=== PATIENT | male | born 1945 | race Caucasian/White ===

== ENCOUNTER 2017-05-07 19:14 | Emergency (ER) | payer MEDICARE, SELFPAY | END 2017-05-07 21:24 | disposition home or self-care (01) | PROVIDERS: Emergency Provider Nurse Practitioner Family; Family Provider Emergency Medicine; Visit Provider Nurse Practitioner Family | DX: J11.1 Influenza due to unidentified influenza virus with other respiratory manifestations (principal); E11.9 Type 2 diabetes mellitus without complications; I10 Essential (primary) hypertension; E78.5 Hyperlipidemia, unspecified; Z79.899 Other long term (current) drug therapy | CPT/HCPCS: G0463; 71020; 80048; 85025; 87804; 94640; 96372; 99201 ==

== ENCOUNTER → 2017-08-24 15:50 | Outpatient (REF) | payer MEDICARE, SELFPAY ==
[2017-08-24 18:17] LABS: Basophils % 0.6 % (0.1-2.0); Eosinophils # 0.5 K/mm3 (0.0-0.4); Eosinophils % 6.3 % (0.1-12.0); Hematocrit 41.4 % (42.0-52.0); Hemoglobin 13.1 g/dL (14.1-18.0); Lymphocytes # 1.6 K/mm3 (0.7-4.5); Lymphocytes % 22.2 K/mm3 (10-50); Mean Corpuscular HGB Conc 31.6 g/dL (31.8-35.4); Mean Corpuscular Hemoglobin 30.3 pg (27.0-31.2); Mean Corpuscular Volume 95.9 fl (80-94); Mean Platelet Volume 7.7 fl (7.4-10.4); Monocytes # 0.6 K/mm3 (0.1-1.0); Monocytes % 8.3 % (1.7-9.3); Neutrophils # 4.5 K/mm3 (1.8-7.8); Neutrophils % 62.5 % (37.0-80.0); Platelet Count 246 K/mm3 (142-424); Red Blood Count 4.32 M/mm3 (4.60-6.20); Red Cell Distribution Width 13.2 % (11.5-17.5); White Blood Count 7.1 K/mm3 (4.8-10.8)
[2017-08-24 18:59] LABS: Hemoglobin A1C 7.8 % (0.0-7.0)
[2017-08-24 19:06] LABS: Erythrocyte Sedimentation Rate 21 mm/hr (0-20)
[2017-08-24 19:37] LABS: Alanine Aminotransferase 28 U/L (12-78); Albumin Level 3.3 gm/dL (3.4-5.0); Alkaline Phosphatase 142 U/L (46-116); Anion Gap 14.2 mEq/L (5-15); Aspartate Amino Transferase 23 U/L (15-37); Bilirubin,Total 0.3 mg/dL (0.2-1.0); Blood Urea Nitrogen 18 mg/dL (7-18); Carbon Dioxide 27 mmol/L (21.0-32.0); Chloride 108 mmol/L (98-107); Creatinine,Serum 1.29 mg/dL (0.70-1.30); Estimated Glomerular Filt Rate 55 ml/min (>60); GFR (African American) 66 ML/MIN (>60); Globulin 3.2 gm/dl (1.3-3.2); Glucose 228 mg/dL (74-106); Potassium 5.2 mmoL/L (3.5-5.1); Sodium 144 mmol/L (136-145); Thyroid Stimulating Hormone 2.25 uIU/ml (0.358-3.740); Total Protein,Serum 6.5 gm/dL (6.4-8.2)
[2017-08-26 15:57] LABS: PSA, Free 0.03 ng/mL; Prostate Specific Ag <0.1 ng/mL (0.0-4.0); Vitamin B12 463 pg/mL (232-1245); Vitamin D 25 Hydroxy 36.6 ng/mL (30.0-100.0)
== END ==
LOC: LAB 15:50
PROVIDERS: Visit Provider Emergency Medicine
DX: Z79.899 Other long term (current) drug therapy (principal); G62.9 Polyneuropathy, unspecified; I10 Essential (primary) hypertension
CPT/HCPCS: 80053; 82607; 82652; 83036; 84153; 84154; 84439; 84443; 85025; 85651

== ENCOUNTER → 2017-09-15 09:27 | Outpatient (CLI) | payer MEDICARE, SELFPAY ==
[2017-09-15 11:24] VITALS: PULSE 62; PULSE 69
== END ==
PROVIDERS: Family Provider Emergency Medicine; PCP Emergency Medicine; Visit Provider Internal Medicine
DX: R06.02 Shortness of breath (principal); I25.10 Atherosclerotic heart disease of native coronary artery without angina pectoris
CPT/HCPCS: 94060; 94640; 94726; 94729

== ENCOUNTER → 2018-04-14 09:55 | Outpatient (CLI) | payer MEDICARE, SELFPAY ==
--- NOTE | 2018-04-14 09:58 | CA_ITS ---
PROCEDURE: 2-D M-mode and color Doppler study INDICATIONS FOR THE TEST: Chest pain + COPD Heart Murmur Tobacco Smoking Palpitations Fatigue Syncope Edema+ Hypertension+Diabetes Mellitus+ Rheumatic Fever SOB MOISE Obesity Hyperlipidemia Family History HD Additional History MEHUL, CAD, STENT PATIENT INFORMATION HEIGHT: 69 WEIGHT:200 GENDER: Male B/P:126/76 2-D/M-MODE INTERPRETATION: 2-D MEASUREMENTS OBSERVED VALUES IN CMS Right Ventricular Dimension (RVDd) 3.0 Interventricular Septum (Thickness)(IVsd) 1.5 Left Ventricular Internal Dimensions(LVIDd) 3.8 Left Ventricular Posterior Wall (Thickness)(LVPWd) 1.2 Aortic Root 2.8 Aortic Cusp Separation 1.6 Left Atrial Dimensions (LAD) 4.1 2D 1. Left atrium is mildly enlarged, left ventricle is normal size, mild concentric left ventricular hypertrophy, visually estimated ejection fraction of 55% with no regional wall motion abnormality. 2. The right atrium and right ventricle are mildly enlarged with normal contractility. 3. The aortic valve is minimally thickened and fibrosed leaflet, display mobility. 4. The mitral and tricuspid valvular grossly normal. 5. The pulmonic valve is poorly visualized. 6. No significant pericardial effusion noted. DOPPLER INTERROGATION: Doppler interrogation of the aortic, mitral and tricuspid valvular presence of mild aortic, mild mitral and tricuspid regurgitation, tricuspid regurgitation jet velocity is inadequate for calculation of the right ventricular systolic pressure. Grade 1 diastolic dysfunction seen with tissue Doppler evidence of raised left atrial pressure. CONCLUSION: 1. Left atrium is mildly enlarged, left ventricle is normal size, mild concentric left ventricular hypertrophy, visually estimated ejection fraction 55% with no regional wall motion abnormality, grade 1 diastolic dysfunction seen with tissue Doppler evidence of raised left atrial pressure. 2. Mild aortic, mild mitral and tricuspid regurgitation 3. No significant pericardial effusion noted.
== END ==
PROVIDERS: PCP Emergency Medicine; Visit Provider Internal Medicine
DX: G47.33 Obstructive sleep apnea (adult) (pediatric) (principal); R06.02 Shortness of breath
CPT/HCPCS: 93306

== ENCOUNTER → 2018-05-13 08:38 | Outpatient (CLI) | payer MEDICARE, SELFPAY ==
[2018-05-13 09:20] LABS: Basophils # 0.1 K/mm3 (0-0.2); Basophils % 0.8 % (0.1-2.0); Eosinophils # 0.2 K/mm3 (0.0-0.4); Eosinophils % 3.6 % (0.1-12.0); Hematocrit 42.2 % (42.0-52.0); Hemoglobin 13.5 g/dL (14.1-18.0); Lymphocytes # 1.4 K/mm3 (0.7-4.5); Lymphocytes % 22.7 % (10-50); Mean Corpuscular Hemoglobin 29.8 pg (27.0-31.2); Mean Corpuscular Volume 93.2 fl (80-94); Mean Platelet Volume 7.4 fl (7.4-10.4); Monocytes # 0.6 K/mm3 (0.1-1.0); Monocytes % 9.1 % (1.7-9.3); Neutrophils # 3.8 K/mm3 (1.8-7.8); Neutrophils % 63.8 % (37.0-80.0); Platelet Count 204 K/mm3 (142-424); Red Blood Count 4.53 M/mm3 (4.60-6.20); Red Cell Distribution Width 13.7 % (11.5-17.5)
[2018-05-13 11:20] LABS: Alanine Aminotransferase 27 U/L (12-78); Albumin Level 3.4 gm/dL (3.4-5.0); Albumin/Globulin Ratio 1.2 (1.1-1.8); Alkaline Phosphatase 153 U/L (46-116); Anion Gap 14.6 mEq/L (5-15); Aspartate Amino Transferase 19 U/L (15-37); Bilirubin,Total 0.5 mg/dL (0.2-1.0); Blood Urea Nitrogen 16 mg/dL (7-18); Calcium 8.3 mg/dL (8.5-10.1); Carbon Dioxide 26 mmol/L (21.0-32.0); Chloride 105 mmol/L (98-107); Chol/HDL Ratio 2.3 (1-3.5); Cholesterol 143 mg/dL (140-200); Creatinine,Serum 1.22 mg/dL (0.70-1.30); Estimated Glomerular Filt Rate 58 ml/min (>60); Free T4 (Free Thyroxine) 1.05 ng/dl (0.76-1.46); GFR (African American) 70 ML/MIN (>60); Globulin 2.8 gm/dl (1.3-3.2); Glucose 147 mg/dL (74-106); HDL Cholesterol 62 mg/dL (27-67); LDL Cholesterol 67 mg/dL (0-130); Potassium 4.6 mmoL/L (3.5-5.1); Sodium 141 mmol/L (136-145); Thyroid Stimulating Hormone 3.63 uIU/ml (0.358-3.740); Total Protein,Serum 6.2 gm/dL (6.4-8.2); Triglycerides 72 mg/dL (30-200); VLDL Cholesterol 14 mg/dL (0-40)
[2018-05-14 10:58] LABS: PSA, Free 0.04 ng/mL; Prostate Specific Ag <0.1 ng/mL (0.0-4.0); Vitamin D 25 Hydroxy 30.5 ng/mL (30.0-100.0)
== END ==
PROVIDERS: Visit Provider Emergency Medicine
DX: E11.9 Type 2 diabetes mellitus without complications (principal); R33.9 Retention of urine, unspecified
CPT/HCPCS: 36415; 80053; 80061; 82652; 83036; 84153; 84154; 84439; 84443; 85025

== ENCOUNTER → 2018-10-07 12:34 | Outpatient (CLI) | payer MEDICARE, SELFPAY ==
--- NOTE | 2018-10-07 12:36 | CI_ITS ---
Cerebrovascular Exam IMPRESSIONS 1. The bilateral vertebral arteries are patent with normal antegrade flow. 2. Study suggests less than 20% stenosis involving the right internal carotid artery and the left internal carotid artery. History: Risk factors: Hypertension. Diabetes mellitus. Labs, prior tests, procedures, and surgery: Right endarterectomy. Labs, prior tests, procedures, and surgery: Right endarterectomy. Carotid duplex study. Complete study and Doppler flow study including spectral analysis, color and giles scale imaging. Height: Height: 175.3cm. Height: 69in. Weight: Weight: 90.7kg. Weight: 199.6lb. Body mass index: BMI: 29.5kg/m^2. Body surface area: BSA: 2.12m^2. Location: Vascular laboratory. Patient status: Outpatient. Tables: Arterial flow: + +--------+--------+ [facility] + +--------+--------+ Right CCA - proximal 120cm/s 18.9cm/s + +--------+--------+ Right CCA - distal 93.5cm/s 23.6cm/s + +--------+--------+ Right ECA 129cm/s -------- + +--------+--------+ Right ICA - proximal 88.8cm/s 31.4cm/s + +--------+--------+ Right ICA - mid 84.8cm/s 27.7cm/s + +--------+--------+ Right ICA - distal 74.1cm/s 23.8cm/s + +--------+--------+ Right vertebral 20.6cm/s -------- + +--------+--------+ Left CCA - proximal 119cm/s 24.4cm/s + +--------+--------+ Left CCA - distal 112cm/s 25.1cm/s + +--------+--------+ Left ECA 104cm/s -------- + +--------+--------+ Left ICA - proximal 95cm/s 24.4cm/s + +--------+--------+ Left ICA - mid 98.5cm/s 36.3cm/s + +--------+--------+ Left ICA - distal 103cm/s 36.3cm/s + +--------+--------+ Left vertebral 34.9cm/s -------- + +--------+--------+ Velocity ratios: + + + + + + Right, V sys Right, V ed Left, V sys Left, V ed + + + + + + Max ICA/dist CCA 0.95 1.33 0.92 1.45 + + + + + + (Report amended ) Electronically signed by: Vivek Bishop [id number]
== END ==
PROVIDERS: PCP Emergency Medicine; Visit Provider Urology
DX: E11.9 Type 2 diabetes mellitus without complications (principal); G47.33 Obstructive sleep apnea (adult) (pediatric); I10 Essential (primary) hypertension; I25.10 Atherosclerotic heart disease of native coronary artery without angina pectoris; I65.23 Occlusion and stenosis of bilateral carotid arteries; Z79.84 Long term (current) use of oral hypoglycemic drugs
CPT/HCPCS: 93880

== ENCOUNTER → 2019-03-21 16:37 | Outpatient (CLI) | payer MEDICARE, SELFPAY ==
[2019-03-21 17:30] LABS: Basophils # 0.1 K/mm3 (0-0.2); Basophils % 0.7 % (0.1-2.0); Eosinophils # 0.1 K/mm3 (0.0-0.4); Eosinophils % 1.5 % (0.1-12.0); Hematocrit 42.3 % (42.0-52.0); Hemoglobin 13.7 g/dL (14.1-18.0); Lymphocytes # 1.6 K/mm3 (0.7-4.5); Lymphocytes % 18.5 % (10-50); Mean Corpuscular HGB Conc 32.4 g/dL (31.8-35.4); Mean Corpuscular Hemoglobin 30.4 pg (27.0-31.2); Mean Corpuscular Volume 93.7 fl (80-94); Mean Platelet Volume 8.4 fl (7.4-10.4); Monocytes # 0.8 K/mm3 (0.1-1.0); Monocytes % 9.6 % (1.7-9.3); Neutrophils # 6.1 K/mm3 (1.8-7.8); Neutrophils % 69.7 % (37.0-80.0); Platelet Count 216 K/mm3 (142-424); Red Blood Count 4.51 M/mm3 (4.60-6.20); Red Cell Distribution Width 13.3 % (11.5-17.5); White Blood Count 8.7 K/mm3 (4.8-10.8)
[2019-03-21 18:26] LABS: Alanine Aminotransferase 21 U/L (12-78); Albumin Level 3.6 gm/dL (3.4-5.0); Albumin/Globulin Ratio 1.2 (1.1-1.8); Alkaline Phosphatase 112 U/L (46-116); Anion Gap 14.8 mEq/L (5-15); Aspartate Amino Transferase 14 U/L (15-37); Bilirubin,Total 0.3 mg/dL (0.2-1.0); Blood Urea Nitrogen 19 mg/dL (7-18); Calcium 9.3 mg/dL (8.5-10.1); Carbon Dioxide 25 mmol/L (21.0-32.0); Chloride 106 mmol/L (98-107); Chol/HDL Ratio 3.1 (1-3.5); Cholesterol 144 mg/dL (140-200); Estimated Glomerular Filt Rate 54 ml/min (>60); Free T4 (Free Thyroxine) 1.04 ng/dl (0.76-1.46); GFR (African American) 65 ML/MIN (>60); Globulin 2.9 gm/dl (1.3-3.2); Glucose 144 mg/dL (74-106); HDL Cholesterol 47 mg/dL (27-67); LDL Cholesterol 70 mg/dL (0-130); Potassium 4.8 mmoL/L (3.5-5.1); Sodium 141 mmol/L (136-145); Thyroid Stimulating Hormone 3.34 uIU/ml (0.358-3.740); Total Protein,Serum 6.5 gm/dL (6.4-8.2); Triglycerides 137 mg/dL (30-200); VLDL Cholesterol 27 mg/dL (0-40)
[2019-03-21 19:11] LABS: Hemoglobin A1C 8.3 % (0.0-7.0)
[2019-03-23 12:03] LABS: Vitamin D 25 Hydroxy 26.1 ng/mL (30.0-100.0)
== END ==
PROVIDERS: Visit Provider Emergency Medicine
DX: E11.9 Type 2 diabetes mellitus without complications (principal); Z79.84 Long term (current) use of oral hypoglycemic drugs
CPT/HCPCS: 80053; 80061; 82652; 83036; 84439; 84443; 85025

== ENCOUNTER → 2019-10-10 09:07 | Outpatient (CLI) | payer MEDICARE, SELFPAY ==
--- NOTE | 2019-10-10 09:09 | CA_ITS ---
APPROVED REPORT Seo Specialist: JAYCEE Laterality: Bilateral Study Quality: Good Indications: dizzines,KARY,RECA Doppler Spectral Velocity Analysis dICA (R) 95.40/29.90 cm/s dICA (L) 84.70/23.60 cm/s Rose (R) 95.50/31.00 cm/s Rose (L) 65.20/17.90 cm/s pICA (R) 132.80/26.40 cm/s pICA (L) 69.10/15.10 cm/s dCCA (R) 108.50/20.20 cm/s dCCA (L) 147.30/29.80 cm/s pCCA (R) 130.20/25.20 cm/s pCCA (L) 88.20/15.30 cm/s Vert (R) 108.40/13.20 cm/s Vert (L) 33.40/9.20 cm/s ICA/CCA 1.20 ICA/CCA 0.60 Conclusion Duplex evaluation demonstrates stenosis of the right proximal internal carotid artery <20% with PSV <140 cm/sec, EDV <100 cm/sec, and IC/CC Ratio <4.0.Duplex evaluation demonstrates stenosis of the left proximal internal carotid artery <20% with PSV <140 cm/sec, EDV <100 cm/sec, and IC/CC Ratio <4.0.Antegrade flow seen bilateral vertebral arteries. No significant change from previous study dated 10/07/18 Electronically signed by : Lasha Lopez MD 10/10/2019 15:38:32
== END ==
PROVIDERS: PCP Emergency Medicine; Visit Provider Urology
DX: R42 Dizziness and giddiness (principal); I65.23 Occlusion and stenosis of bilateral carotid arteries
CPT/HCPCS: 93880

== ENCOUNTER → 2019-10-28 07:02 | Outpatient (CLI) | payer MEDICARE, SELFPAY ==
[2019-10-28 07:29] LABS: Basophils # 0.1 K/mm3 (0-0.2); Eosinophils # 0.4 K/mm3 (0.0-0.4); Eosinophils % 5.9 % (0.1-12.0); Hemoglobin 12.8 g/dL (14.1-18.0); Lymphocytes # 1.5 K/mm3 (0.7-4.5); Lymphocytes % 22.5 % (10-50); Mean Corpuscular HGB Conc 33.8 g/dL (31.8-35.4); Mean Corpuscular Hemoglobin 31.6 pg (27.0-31.2); Mean Corpuscular Volume 93.6 fl (80-94); Mean Platelet Volume 8.1 fl (7.4-10.4); Monocytes # 0.8 K/mm3 (0.1-1.0); Monocytes % 10.9 % (1.7-9.3); Neutrophils # 4.1 K/mm3 (1.8-7.8); Neutrophils % 59.8 % (37.0-80.0); Platelet Count 182 K/mm3 (142-424); Red Blood Count 4.06 M/mm3 (4.60-6.20); Red Cell Distribution Width 13.3 % (11.5-17.5); White Blood Count 6.9 K/mm3 (4.8-10.8)
[2019-10-28 08:23] LABS: Chloride 109 mmol/L (98-107); Hemoglobin A1C 7.3 % (4.0-6.0)
[2019-10-28 08:24] LABS: Potassium 5.1 mmoL/L (3.5-5.1); Sodium 140 mmol/L (136-145)
[2019-10-28 08:26] LABS: Alanine Aminotransferase 19 U/L (12-78); Albumin Level 3.6 g/dl (3.5-5.0); Albumin/Globulin Ratio 1.4 (1.1-1.8); Alkaline Phosphatase 185 U/L (38-126); Anion Gap 7.1 mEq/L (5-15); Aspartate Amino Transferase 27 U/L (17-59); Bilirubin,Total 0.3 mg/dl (0.2-1.3); Blood Urea Nitrogen 19 mg/dl (9-20); Carbon Dioxide 29 mmol/L (22.0-30.0); Estimated Glomerular Filt Rate 65 ml/min (>60); GFR (African American) 79 ML/MIN (>60); Globulin 2.5 g/dL (1.3-3.2); Total Protein,Serum 6.1 g/dl (6.3-8.2)
[2019-10-28 08:27] LABS: Calcium 8.9 mg/dl (8.4-10.2); Chol/HDL Ratio 2.8 (1-3.5); Cholesterol 122 mg/dl (140-200); Glucose 118 mg/dl (74-100); HDL Cholesterol 44 mg/dl (40-60); Triglycerides 111 mg/dl (30-150); VLDL Cholesterol 22 mg/dL (0-40)
[2019-10-28 08:38] LABS: Direct LDL Cholesterol 66.37 mg/dL (100-129)
[2019-10-28 08:44] LABS: T4 (Thyroxine) 9.5 ug/dl (5.53-11.0)
[2019-10-28 08:58] LABS: Thyroid Stimulating Hormone 3.95 uIU/mL (0.465-4.68)
[2019-10-30 10:09] LABS: Prostate Specific Ag Screen < 0.1 ng/ml (0.0-4.0)
== END ==
PROVIDERS: Physician Assistant; Visit Provider Emergency Medicine
DX: E11.9 Type 2 diabetes mellitus without complications (principal); E66.3 Overweight; Z12.5 Encounter for screening for malignant neoplasm of prostate; Z79.84 Long term (current) use of oral hypoglycemic drugs
CPT/HCPCS: 36415; 80053; 80061; 82043; 83036; 84436; 84443; 85025; G0103

== ENCOUNTER → 2020-01-13 10:45 | Outpatient (CLI) | payer MEDICARE, SELFPAY ==
[2020-01-13 11:32] LABS: Iron 95 ug/dL (49-181)
[2020-01-13 11:41] LABS: Total Iron Binding Capacity 320 ug/dL (261-462)
== END ==
PROVIDERS: Visit Provider Emergency Medicine
DX: D64.9 Anemia, unspecified (principal); E11.9 Type 2 diabetes mellitus without complications; Z79.84 Long term (current) use of oral hypoglycemic drugs
CPT/HCPCS: 36415; 82728; 83540; 83550

== ENCOUNTER → 2020-07-08 12:01 | Outpatient (CLI) | payer MEDICARE, SELFPAY ==
--- NOTE | 2020-07-08 12:06 | XR_ITS ---
PROCEDURE: XR FOOT WT BEARING RT 3V CLINICAL INDICATION: neuropathic pain COMPARISON: No exams were available for comparison FINDINGS: No fracture or dislocation. No lytic or blastic change. There is normal mineralization. Mild osteoarthritic changes are present at the 1st metatarsophalangeal joint. Other findings:Vascular calcifications. Mild osteoarthritis talonavicular joint. IMPRESSION: Mild osteoarthritis otherwise negative Dictated by: Lasha Lopez MD 07/08/2020 16:53 Lasha Lopez MD in [place] 07/08/2020 16:53
--- NOTE | 2020-07-08 12:06 | XR_ITS ---
PROCEDURE: XR FOOT WT BEARING LT 3V CLINICAL INDICATION: neuropathic pain COMPARISON: No exams were available for comparison FINDINGS: No fracture or dislocation. No lytic or blastic change. There is normal mineralization. The joint spaces are well-preserved. No significant degenerative/arthritic changes. No erosive changes evident. Other findings:Vascular calcification noted. IMPRESSION: No acute findings. Dictated by: Lasha Lopez MD 07/08/2020 16:53 Lasha Lopez MD in [place] 07/08/2020 16:53
== END ==
PROVIDERS: PCP Emergency Medicine; Visit Provider Podiatrist
DX: E11.9 Type 2 diabetes mellitus without complications (principal); Z79.84 Long term (current) use of oral hypoglycemic drugs
CPT/HCPCS: 73630

== ENCOUNTER → 2020-10-07 07:08 | Outpatient (CLI) | payer MEDICARE, SELFPAY ==
--- NOTE | 2020-10-07 07:09 | NM_ITS ---
APPROVED REPORT Exam: Nuclear Stress Test Indication: Chest pain, SOB, CAD, CABG, HTN, DM, High cholesterol, Family history Patient Location: Outpatient Stress Tech: Noni Palm [place] Tech:Deja Sullivan, ARRT, RT (R)(N) Ht: 5 ft 9 in Wt: 190 lbs HR: 66 bpm BP: 159/69 mmHg BSA: 2.02 m2 BMI: 28.0 History: Chest pain, SOB, CAD, CABG, HTN, DM, High cholesterol, Family history Procedure: Patient received a 0.4 mg of intravenous Lexiscan, resting heart rate 66 bpm, resting blood pressure 159/69 mmHg, with Lexiscan maximum heart rate achived was 71 bpm which is Less than 85 % of the maximum predicted heart rate and blood pressure was 137/64 mmHg. With Lexiscan, patient denied any complaint of chest pain. Electrocardiogram Resting electrocardiogram shows sinus rhythm right bundle branch block, with Lexiscan there is less than 1.[address] segment depression noted from the baseline EKG. The EKG portion of the Lexiscan is nondiagnostic. Cardiac Stress and Resting SPECT Images: Cardiac Stress and Resting SPECT images were obtained using technetium 99m Myoview 31.0 mCi stress and 10.79 mCi at rest. Gated SPECT for analysis of segmental wall motion and calculation of the ejection fraction also done, prone images were also obtained. Cardiac stress and resting SPECT images show uniform myocardial activity without segmental perfusion abnormality, computer derived ejection fraction is 64% with no regional wall motion abnormality, right ventricle is normal size and contractility. Conclusion: 1. The EKG portion of the Lexiscan is nondiagnostic. 2. No scintigraphic evidence of reversible ischemia seen, computer derived ejection fraction is 64% with no regional wall motion abnormality, right ventricle is normal size and contractility. 3. Normal Lexiscan Myoview study. Electronically signed by : Hernan Wahl, 10/08/2020 06:20:41
--- NOTE | 2020-10-07 09:20 | HMH.ITSHM ---
Current Home Medications as stated by this patient Ramon Rangel or accounting representative. []SITAGLIPTIN PITAVASTATIN MULTIVITAMIN METPROLOL METFORMIN LORATADINE LISINOPRIL GLIMEPIRIDE GABAPENTIN CLOPIDOGREL CETIRIZINE ASA AMLODIPINE
--- NOTE | 2020-10-07 10:04 | CA_ITS ---
APPROVED REPORT Exam: Pharmacologic Technologist: Noni Palm, Ht: 5 ft 9 in Wt: 198 lbs BSA: 2.06 m2 HR: 66 bpm BP: 159/69 mmHg Medical History Medications: Amlodipine,,,,, Aspirin,,,,, Metformin,,,,, ClARITAN,,,,, CloPIdogrel,,,,, JanuIVA,,,,, CetIRazine,,,,, Metoprol,,,,, GabaENTIN,,,,, GlimepERIDE,,,,, Lisinopri/HCTZ,,,,, Stress Test Details Test: LEXISCAN HR Resting HR: 64 bpm Max Heart Rate (APMHR): 144 bpm Max HR Achieved: 72 bpm Target HR (85% APMHR): 122 bpm % of APMHR: 50 Recovery HR: 69 bpm BP Resting BP: 159/69 mmHg Max BP: 159/69 mmHg Recovery BP: 124.0/64.0 mmHg ECG Resting ECG: SR with RBBB Clinical Exercise duration: 04:00 min Highest Stage Achieved: Exercise capacity: 1.0 METs Stress ECG Conclusion Lexiscan portion completed. Symptoms: Pt c/o Shortness of breath during peak infusion. No CP. Arrhythmias/Ectopy: No ectopy. ST-T Changes: Less than 1.5mm ST Depression. Conclusion: Images to follow. Electronically signed by : Hernan Wahl, 10/08/2020 06:07:48
== END ==
PROVIDERS: PCP Emergency Medicine; Visit Provider Physician Assistant
DX: E11.8 Type 2 diabetes mellitus with unspecified complications (principal); E78.00 Pure hypercholesterolemia, unspecified; G47.33 Obstructive sleep apnea (adult) (pediatric); I10 Essential (primary) hypertension; I25.10 Atherosclerotic heart disease of native coronary artery without angina pectoris; I65.29 Occlusion and stenosis of unspecified carotid artery; R06.00 Dyspnea, unspecified; R42 Dizziness and giddiness; Z95.5 Presence of coronary angioplasty implant and graft
CPT/HCPCS: 78452; 93017; A9502; J2785

== ENCOUNTER → 2021-04-21 10:05 | Outpatient (CLI) | payer MEDICARE, SELFPAY ==
--- NOTE | 2021-04-21 10:08 | CA_ITS ---
APPROVED REPORT EXAM: Comprehensive 2D, Doppler, and color-flow Echocardiogram Sidewalk Repairer: Jessica Juarez, RCS, RVS Ht: 5 ft 9 in Wt: 191lbs BSA: 2.03 BP: 153/72 mmHg Indications: incrrased SOA, CABG, CAD, DD 2D Dimensions IVSd 0.94 cm LVEF (Visual) 74.60 % PWd 0.76 cm LA Volume 45.70 mL LVDd 5.10 cm LA Volume Index 22.061184 mL/m2 (M/F) 16-34 LVDs 2.87 cm Aortic Root 3.45 cm Left Atrium 1.81 cm M-Mode Dimensions RVDd 2.54 cm (0.9-2.6) LA Diam 4.01 cm (1.9-4.0) LVDd 5.18 cm (3.5-5.7) Ao Diam 2.88 cm (2.0-3.7) LVDs 2.86 cm (3.5-5.7) IVSd 0.89 cm (0.6-1.1) PWd 0.96 cm (0.6-1.1) EF (Teich) 75.80% EPSs 0.32 cm FS 44.80% EDV (Teich) 128.40 mL TAPSE 2.04 (<1.7) ESV (Teich) 31.10 mL LV Diastology E Decel Time 167.00 (160-240 msec) E/A Ratio 0.98 MED E' 6.90 (< 7 cm/sec) MED A' 8.90 cm/s E'/MED E' Ratio 16.36 (>14) LAT E' 7.80 (<10 cm/sec) LAT A' 10.20 cm/s E/LAT E' Ratio 14.47 (>14) Aortic Valve LVOT Max 102.00 (70-110 cm/s) LVOT VTI 24.59 cm AoV Peak Shailesh. 224.00 (50-130 cm/s) AI PHT 471.00 ms AO Peak GR. 20.10 mmHg AO Mean GR. 10.20 (<5 mmHg) AO VTI 51.41 (18-25 cm) Mitral Valve MV E Max Shailesh. 113.00 (40-130 cm/s) MV A Velocity 115.00 (40-130 cm/s) E/A Ratio 0.98 MV Decel. Time 167.00 (160-240 ms) MV Mean Gr. 3.20 (<2mmHg) MV PHT 49.00 ms Pulmonary Valve PV Peak Velocity 107.00 (50-150 cm/s) Tricuspid Valve TR P. Velocity 228.00 cm/s RAP Estimate 10.00 mmHg RVSP 30.80 mmHg Left Ventricle Left atrium is mildly enlarged, left ventricle is normal size, mild concentric left ventricular hypertrophy, visually estimated ejection fraction 55% with no regional wall motion abnormality, grade 2 diastolic dysfunction seen with tissue Doppler evidence of raise left atrial pressure. Right Ventricle Right atrium and right ventricle are qualitatively mildly enlarged with normal contractility. Aortic Valve Aortic valve is minimally thickened and fibrosed, there is no significant aortic stenosis, there is mild aortic insufficiency. Mitral Valve Mitral valve grossly normal, there is mild mitral regurgitation. Tricuspid Valve Tricuspid grossly normal, there is mild tricuspid regurgitation, calculated right ventricular systolic pressure 29 mmHg. Pulmonic Valve Pulmonic valve is poorly visualized. Great Vessels Aortic root is normal size. Inferior vena cava is poorly visualized. Pericardium No significant pericardial effusion noted. Conclusion 1. Mild biatrial enlargement, normal left ventricular size, visually estimated ejection fraction 55% with no regional wall motion abnormality, grade 2 diastolic dysfunction seen with tissue Doppler evidence of raise left atrial pressure. 2. Thickened and calcified aortic valve without significant aortic stenosis there is mild aortic insufficiency. 3. Mild mitral and tricuspid regurgitation, calculated right ventricular systolic pressure 29 mmHg. 4. No significant pericardial effusion noted. Electronically signed by : Hernan Wahl MD 04/21/2021 21:33:27
== END ==
PROVIDERS: PCP Emergency Medicine; Visit Provider Physician Assistant
DX: E78.00 Pure hypercholesterolemia, unspecified (principal); I10 Essential (primary) hypertension; I25.10 Atherosclerotic heart disease of native coronary artery without angina pectoris; I51.89 Other ill-defined heart diseases; I65.29 Occlusion and stenosis of unspecified carotid artery; R01.1 Cardiac murmur, unspecified; R06.00 Dyspnea, unspecified; Z95.1 Presence of aortocoronary bypass graft; Z95.5 Presence of coronary angioplasty implant and graft
CPT/HCPCS: 93306

== ENCOUNTER → 2021-04-30 10:39 | Outpatient (CLI) | payer MEDICARE, SELFPAY ==
[2021-04-30 11:52] LABS: Chloride 102 mmol/L (98-107); Sodium 137 mmol/L (136-145)
[2021-04-30 11:55] LABS: Calcium 8.6 mg/dl (8.4-10.2); Carbon Dioxide 28 mmol/L (22.0-30.0); Glucose 259 mg/dl (74-100)
[2021-04-30 12:01] LABS: Blood Urea Nitrogen 22 mg/dl (9-20); Estimated Glomerular Filt Rate 59 ml/min (>60); GFR (African American) 71 ML/MIN (>60)
== END ==
PROVIDERS: Visit Provider Physician Assistant
DX: E78.00 Pure hypercholesterolemia, unspecified (principal); I10 Essential (primary) hypertension; I25.10 Atherosclerotic heart disease of native coronary artery without angina pectoris; I51.89 Other ill-defined heart diseases; I65.29 Occlusion and stenosis of unspecified carotid artery; R01.1 Cardiac murmur, unspecified; R06.00 Dyspnea, unspecified; Z95.1 Presence of aortocoronary bypass graft; Z95.5 Presence of coronary angioplasty implant and graft
CPT/HCPCS: 36415; 80048

== ENCOUNTER → 2021-10-29 10:42 | Outpatient (CLI) | payer MEDICARE, SELFPAY ==
[2021-10-29 11:57] LABS: Bilirubin,Unconjugated 0.2 mg/dL (0.0-1.1)
[2021-10-29 11:58] LABS: Alanine Aminotransferase 16 U/L (12-78); Albumin Level 3.6 g/dl (3.5-5.0); Alkaline Phosphatase 155 U/L (38-126); Aspartate Amino Transferase 25 U/L (17-59); Bilirubin,Direct 0.2 mg/dl (0.0-0.4); Bilirubin,Indirect 0.2 mg/dL (0.0-0.9); Bilirubin,Total 0.4 mg/dl (0.2-1.3); Chol/HDL Ratio 2.8 (1-3.5); Cholesterol 127 mg/dl (140-200); HDL Cholesterol 46 mg/dl (40-60); Total Protein,Serum 5.9 g/dl (6.3-8.2); Triglycerides 113 mg/dl (30-150); VLDL Cholesterol 23 mg/dL (0-40)
[2021-10-29 12:09] LABS: Direct LDL Cholesterol 61.03 mg/dL (100-129)
== END ==
PROVIDERS: PCP Emergency Medicine; Visit Provider Nurse Practitioner
DX: E78.00 Pure hypercholesterolemia, unspecified (principal); G62.9 Polyneuropathy, unspecified; I10 Essential (primary) hypertension; I25.10 Atherosclerotic heart disease of native coronary artery without angina pectoris; I65.29 Occlusion and stenosis of unspecified carotid artery; Z95.1 Presence of aortocoronary bypass graft; Z95.5 Presence of coronary angioplasty implant and graft
CPT/HCPCS: 36415; 80061; 80076

== ENCOUNTER → 2021-11-19 13:56 | Outpatient (CLI) | payer MEDICARE, SELFPAY ==
[2021-11-19 13:19] LABS: Basophils # 0.1 K/mm3 (0-0.2); Eosinophils # 0.3 K/mm3 (0.0-0.4); Eosinophils % 4.3 % (0.1-12.0); Hematocrit 42.7 % (42.0-52.0); Hemoglobin 12.9 g/dL (14.1-18.0); Lymphocytes % 14.4 % (10-50); Mean Corpuscular HGB Conc 30.3 g/dL (31.8-35.4); Mean Corpuscular Volume 99.1 fl (80-94); Mean Platelet Volume 8.5 fl (7.4-10.4); Monocytes # 0.7 K/mm3 (0.1-1.0); Monocytes % 9.8 % (1.7-9.3); Neutrophils % 70.5 % (37.0-80.0); Platelet Count 223 K/mm3 (142-424); Red Blood Count 4.31 M/mm3 (4.60-6.20); Red Cell Distribution Width 13.3 % (11.5-17.5); White Blood Count 7.1 K/mm3 (4.8-10.8)
[2021-11-19 13:55] LABS: Alanine Aminotransferase 19 U/L (12-78); Albumin Level 3.7 g/dl (3.5-5.0); Albumin/Globulin Ratio 1.5 (1.1-1.8); Alkaline Phosphatase 150 U/L (38-126); Anion Gap 9.4 mEq/L (5-15); Aspartate Amino Transferase 31 U/L (17-59); Bilirubin,Total 0.2 mg/dl (0.2-1.3); Blood Urea Nitrogen 23 mg/dl (9-20); Calcium 8.8 mg/dl (8.4-10.2); Carbon Dioxide 27 mmol/L (22.0-30.0); Chloride 104 mmol/L (98-107); Estimated Glomerular Filt Rate 59 ml/min (>60); GFR (African American) 71 ML/MIN (>60); Globulin 2.5 g/dL (1.3-3.2); Glucose 131 mg/dl (74-100); Potassium 4.4 mmoL/L (3.5-5.1); Sodium 136 mmol/L (136-145); Total Protein,Serum 6.2 g/dl (6.3-8.2)
[2021-11-19 14:11] LABS: Free T4 (Free Thyroxine) 1.16 ng/dl (0.78-2.19)
[2021-11-19 14:24] LABS: Prostate Specific Ag Screen 0.1 ng/ml (0.0-4.0); Thyroid Stimulating Hormone 3.38 uIU/mL (0.465-4.68)
[2021-11-19 14:49] LABS: Hemoglobin A1C 7.9 % (4.0-6.0)
== END ==
PROVIDERS: PCP Emergency Medicine; Visit Provider Emergency Medicine
DX: E11.9 Type 2 diabetes mellitus without complications (principal); Z12.5 Encounter for screening for malignant neoplasm of prostate; Z79.84 Long term (current) use of oral hypoglycemic drugs
CPT/HCPCS: 80053; 83036; 84439; 84443; 85025; G0103

== ENCOUNTER 2021-12-31 09:34 | Day surgery (SDC) | payer MEDICARE, SELFPAY ==
[2021-12-31] VITALS (12 sets, daily range): BP systolic 90–156; BP diastolic 54–82; PULSE 59–87; RESP 17–18; O2SAT 91–100; BMI 27.4
--- NOTE | 2021-12-31 | IR_ITS ---
APPROVED REPORT Patient Location: Outpatient [facility] Utility Worker: TARA Aldana RT (R) PROCEDURES Left heart catheterization Left ventriculogram Selective coronary angiogram Selective engagement left internal mammary artery Selective engage in the saphenous vein graft to the circumflex artery Drug-eluting stent deployment to the proximal LAD Drug-eluting stent deployment to the ostial mid and distal left main artery INDICATION Coronary artery disease, Unstable angina, History of coronary bypass surgery Informed consent was obtained prior to the procedure. COMPLICATIONS none Estimated Blood Loss: less than 10 ml TECHNIQUE One percent lidocaine used to anesthetize the right groin. The right femoral artery was accessed via the Seldinger technique and a 5 Vietnamese sheath was placed in the right femoral artery. A JL 4, JR4 catheter were used to perform left heart catheterization, left ventriculogram selective coronary angiography as well as selective engagement of the 1 vein graft and the left internal mammary artery. At the end of the procedure the 5 Vietnamese sheath was exchanged for a 6 Vietnamese sheath and therapeutic heparin was administered. Initially a JL 4 guide catheter was placed in the left main artery followed by a Choice PT extra-support wires. Multiple predilatation's were made using 2 mm 2.5 mm and 3 mm balloons. Despite using a guide liner the guide catheter simply would not provide the support necessary to deliver stent. The JL 4 guide catheter was replaced using an EBU 3.75 guide catheter. This was placed in the left main artery and a wire was placed into the LAD. A 3 mm x 12 mm resolute Girma stent was deployed in the proximal LAD at 24 trupti. This extended back to the left main artery. A 3.5 x 8 mm resolute Beaumont stent was then deployed in the ostium of the left main artery at 24 trupti. The balloon was placed distally and deployed at 24 trupti as well. At the end of the procedure the apparatus was removed the groin is reprepped closure change sheath was removed and hemostasis was achieved using Perclose device patient was transferred to the postop putting in stable condition. ALFREDO-3 flow was present before and after the procedure ANGIOGRAPHIC RESULTS The left main artery Has an ostial calcified 80% stenosis The left anterior descending artery Has proximal 10% calcification with severe mid vessel stenoses giving no angiographic evidence of retrograde filling of the large diagonal artery. Large diagonal artery is widely patent and appears to have all blood supply via the left main artery The circumflex artery Proximally occluded The right coronary artery Is a dominant vessel with a stent in the ostial proximal mid and distal segment. The stents are widely patent with minimal 30% in-stent restenosis. Distally there are 30% stenoses The KIMBALL ventriculogram reveals Preserved at 50% The left ventricular end-diastolic pressure 10 mmHg LEAL to LAD is widely patent however the LAD itself is small and provides minimal retrograde filling Saphenous vein graft circumflex arteries widely patent IMPRESSION Coronary disease as described above Successful stenting of the LAD and left main artery as described above Preserved ejection fraction Normal left ventricular end-diastolic pressure PLAN 1. Dual antiplatelet therapy 2. Risk factor modification 3. Cardiac rehabilitation 4. Avoidance of tobacco products 5. LDL less than 55 to be achieved with high intensity statin Electronically signed by : Hilton Marquis MD 12/31/2021 13:28:14
[2021-12-31 09:47] LABS: Coronavirus 19, PCR Not Detected (NotDetected); Influenza A, PCR Not Detected (NotDetected); Influenza B, PCR Not Detected (NotDetected)
[2021-12-31 10:09] LABS: Basophils # 0.1 K/mm3 (0-0.2); Eosinophils # 0.3 K/mm3 (0.0-0.4); Eosinophils % 3.5 % (0.1-12.0); Hematocrit 45.5 % (42.0-52.0); Hemoglobin 13.9 g/dL (14.1-18.0); Lymphocytes # 1.1 K/mm3 (0.7-4.5); Lymphocytes % 13.4 % (10-50); Mean Corpuscular HGB Conc 30.7 g/dL (31.8-35.4); Mean Corpuscular Hemoglobin 30.6 pg (27.0-31.2); Mean Corpuscular Volume 99.8 fl (80-94); Mean Platelet Volume 8.4 fl (7.4-10.4); Monocytes # 0.7 K/mm3 (0.1-1.0); Monocytes % 8.8 % (1.7-9.3); Neutrophils # 6.1 K/mm3 (1.8-7.8); Neutrophils % 73.2 % (37.0-80.0); Platelet Count 217 K/mm3 (142-424); Red Blood Count 4.55 M/mm3 (4.60-6.20); Red Cell Distribution Width 13.3 % (11.5-17.5); White Blood Count 8.4 K/mm3 (4.8-10.8)
[2021-12-31 10:10] LABS: Chloride 101 mmol/L (98-107); Sodium 134 mmol/L (136-145)
[2021-12-31 10:11] LABS: Potassium 4.4 mmoL/L (3.5-5.1)
[2021-12-31 10:13] LABS: Anion Gap 10.4 mEq/L (5-15); Blood Urea Nitrogen 20 mg/dl (9-20); Carbon Dioxide 27 mmol/L (22.0-30.0); Estimated Glomerular Filt Rate 59 ml/min (>60); GFR (African American) 71 ML/MIN (>60)
[2021-12-31 10:14] LABS: Calcium 9.5 mg/dl (8.4-10.2); Glucose 316 mg/dl (74-100)
[2021-12-31 13:36] LABS: CATHL Activated Clotting Time 320 SEC (74-125)
[2021-12-31 13:39] LABS: CATHL Activated Clotting Time 236 SEC (74-125)
--- NOTE | 2021-12-31 14:44 | HMH.PHACLD ---
Ramon Rangel has received discharge medication counseling on the following medications: ASPIRIN PLAVIX PITAVASTATIN LISINOPRIL METOPROLOL PATIENT ALREADY TAKING ALL NECESSARY MEDICATIONS. NO QUESTIONS OR CONCERNS AT THIS TIME. -KAMARI DSOUZA, DARRIOND
== END 2021-12-31 16:01 | disposition home or self-care (01) ==
PROVIDERS: Nurse Practitioner; PCP Emergency Medicine; Visit Provider Internal Medicine
DX: Z95.1 Presence of aortocoronary bypass graft; R06.00 Dyspnea, unspecified; I25.110 Atherosclerotic heart disease of native coronary artery with unstable angina pectoris; I10 Essential (primary) hypertension; E11.9 Type 2 diabetes mellitus without complications; Z79.84 Long term (current) use of oral hypoglycemic drugs; Z79.899 Other long term (current) drug therapy
CPT/HCPCS: 36415; 80048; 85025; 85347; 92928; 93459; 99152; 99153; C1725; C1760; C1769; C1876; C1894; C9600; C9803; J1644; Q9966; U0003; U0005

== ENCOUNTER → 2022-01-05 13:58 | Outpatient (CLI) | payer MEDICARE, SELFPAY ==
--- NOTE | 2022-01-05 13:59 | CA_ITS ---
FINAL REPORT TECHNIQUE: Arterial duplex Doppler evaluation of the right lower extremity with spectral analysis. CLINICAL HISTORY: patient has extensive bruising to the right groin region. Patient had a heart cath with rt groin access 12/31/21. He states it was much worse days after the procedure but feels it is better now. He had cardiac stents placed at that time. HTN, HLD, DM, never smoked. FINDINGS: No evidence of right lower extremity pseudoaneurysm IMPRESSION: No evidence of pseudoaneurysm. Reviewed, Interpreted and Dictated by Jay Euceda III, MD Transcribed by Carol Ann Hardin Authenticated and [facility]
== END ==
PROVIDERS: PCP Emergency Medicine; Visit Provider Nurse Practitioner
DX: I77.0 Arteriovenous fistula, acquired (principal)
CPT/HCPCS: 93926

== ENCOUNTER → 2022-05-06 09:39 | Outpatient (CLI) | payer MEDICARE, SELFPAY ==
--- NOTE | 2022-05-06 09:52 | XR_ITS ---
FINAL REPORT CLINICAL HISTORY: Bilateral foot pain- left side is worse. Pain in top of left foot that radiates into second toe. Soreness. Occasional swelling. FINDINGS: RIGHT FOOT Three views of the right foot demonstrate no acute fracture or dislocation. There are mild degenerative changes of the great toe. The soft tissues are unremarkable. IMPRESSION: No acute bony abnormality. Reviewed, Interpreted and Dictated by Jay Euceda III, MD Transcribed by Theresa Lazo Authenticated and [facility]
--- NOTE | 2022-05-06 09:52 | XR_ITS ---
FINAL REPORT CLINICAL HISTORY: Bilateral foot pain- left side is worse. Pain in top of left foot that radiates into second toe. Soreness. Occasional swelling. FINDINGS: LEFT FOOT Three views of the left foot demonstrate no acute fracture or dislocation. There are mild degenerative changes of the great toe. The soft tissues are unremarkable. IMPRESSION: No acute bony abnormality. Reviewed, Interpreted and Dictated by Jay Euceda III, MD Transcribed by Theresa Lazo Authenticated and [facility]
== END ==
PROVIDERS: PCP Emergency Medicine; Visit Provider Podiatrist
DX: M79.671 Pain in right foot (principal); M79.672 Pain in left foot
CPT/HCPCS: 73630

== ENCOUNTER → 2022-08-10 09:27 | Outpatient (CLI) | payer MEDICARE, SELFPAY ==
[2022-08-10 10:15] LABS: Basophils # 0.1 K/mm3 (0-0.2); Basophils % 0.9 % (0.1-2.0); Eosinophils # 0.2 K/mm3 (0.0-0.4); Eosinophils % 3.2 % (0.1-12.0); Hematocrit 41.7 % (42.0-52.0); Hemoglobin 13.1 g/dL (14.1-18.0); Lymphocytes % 14.7 % (10-50); Mean Corpuscular HGB Conc 31.3 g/dL (31.8-35.4); Mean Corpuscular Hemoglobin 30.3 pg (27.0-31.2); Mean Corpuscular Volume 96.6 fl (80-94); Mean Platelet Volume 7.9 fl (7.4-10.4); Monocytes # 0.7 K/mm3 (0.1-1.0); Monocytes % 9.8 % (1.7-9.3); Neutrophils # 4.9 K/mm3 (1.8-7.8); Neutrophils % 71.5 % (37.0-80.0); Platelet Count 231 K/mm3 (142-424); Red Blood Count 4.32 M/mm3 (4.60-6.20); Red Cell Distribution Width 13.8 % (11.5-17.5); White Blood Count 6.9 K/mm3 (4.8-10.8)
[2022-08-10 10:33] LABS: Hemoglobin A1C 7.5 % (4.0-6.0)
[2022-08-10 10:38] LABS: Alanine Aminotransferase 17 U/L (12-78); Albumin Level 3.6 g/dl (3.5-5.0); Albumin/Globulin Ratio 1.5 (1.1-1.8); Alkaline Phosphatase 146 U/L (38-126); Anion Gap 11.9 mEq/L (5-15); Aspartate Amino Transferase 25 U/L (17-59); Bilirubin,Total 0.6 mg/dl (0.2-1.3); Blood Urea Nitrogen 22 mg/dl (9-20); Calcium 8.6 mg/dl (8.4-10.2); Carbon Dioxide 26 mmol/L (22.0-30.0); Chloride 104 mmol/L (98-107); Chol/HDL Ratio 2.6 (1-3.5); Cholesterol 138 mg/dl (140-200); Estimated Glomerular Filt Rate 53 ml/min (>60); GFR (African American) 65 ML/MIN (>60); Globulin 2.4 g/dL (1.3-3.2); Glucose 166 mg/dl (74-100); HDL Cholesterol 54 mg/dl (40-60); Potassium 4.9 mmoL/L (3.5-5.1); Sodium 137 mmol/L (136-145); Triglycerides 84 mg/dl (30-150); VLDL Cholesterol 17 mg/dL (0-40)
[2022-08-10 10:50] LABS: Direct LDL Cholesterol 70.75 mg/dL (100-129)
[2022-08-10 10:55] LABS: Free T4 (Free Thyroxine) 1.28 ng/dl (0.78-2.19)
[2022-08-10 10:56] LABS: 25-OH Vitamin D, Total 46.8 ng/mL (30-100)
[2022-08-10 11:09] LABS: Thyroid Stimulating Hormone 2.73 uIU/mL (0.465-4.68)
== END ==
PROVIDERS: PCP Emergency Medicine; Visit Provider Emergency Medicine
DX: E55.9 Vitamin D deficiency, unspecified; E11.9 Type 2 diabetes mellitus without complications; Z79.84 Long term (current) use of oral hypoglycemic drugs
CPT/HCPCS: 36415; 80053; 80061; 82306; 83036; 84439; 84443; 85025

== ENCOUNTER → 2022-11-02 13:10 | Outpatient (CLI) | payer MEDICARE, SELFPAY ==
[2022-11-02 19:03] LABS: Creatinine,Urine Random 68 mg/dL (Not Estab.); Microalbumin < 6.000 mg/L (0-16.7)
== END ==
PROVIDERS: PCP Emergency Medicine; Visit Provider Emergency Medicine
DX: E11.40 Type 2 diabetes mellitus with diabetic neuropathy, unspecified (principal); Z79.84 Long term (current) use of oral hypoglycemic drugs
CPT/HCPCS: 82043; 82570

== ENCOUNTER → 2022-11-09 12:40 | Outpatient (CLI) | payer MEDICARE, SELFPAY ==
--- NOTE | 2022-11-09 12:56 | CA_ITS ---
FINAL REPORT TECHNIQUE: Color Doppler, duplex Doppler and giles scale sonography of the bilateral neck vasculature was performed. Velocities were measured in the carotid arteries. Stenosis evaluation based on velocity criteria. CLINICAL HISTORY: hang bruit, hx of right endarterectomy, HTN, HLD, DM FINDINGS: The peak systolic velocity of the right common carotid artery is 89.8 cm/sec and internal carotid artery 111.9 cm/sec. The diastolic velocity in the internal carotid artery is 31.6 cm/sec. The ICA/CCA ratio is 1.25. Visually, mild plaque is seen. These findings are consistent with less than 50% stenosis. The external carotid artery is patent. The right vertebral artery is patent with antegrade flow. The peak systolic velocity of the left common carotid artery is 115.5 cm/sec and internal carotid artery 102 cm/sec. The diastolic velocity in the internal carotid artery is 36 cm/sec. The ICA/CCA ratio is 0.89. Visually, a moderate amount of plaque is seen. These findings are consistent with less than 50% stenosis. The external carotid artery is patent. The left vertebral artery is patent with antegrade flow. IMPRESSION: No evidence of significant carotid stenosis. Bilateral patent vertebral arteries. If indicated, CTA or MRA could further evaluate. Reviewed, Interpreted and Dictated by Jay Euceda III, MD Transcribed by Rissa Roca Authenticated and [facility]
== END ==
PROVIDERS: PCP Emergency Medicine; Visit Provider Physician Assistant
DX: I10 Essential (primary) hypertension (principal); I25.10 Atherosclerotic heart disease of native coronary artery without angina pectoris; R09.89 Other specified symptoms and signs involving the circulatory and respiratory systems; I65.23 Occlusion and stenosis of bilateral carotid arteries
CPT/HCPCS: 93880

== ENCOUNTER → 2022-11-11 15:36 | Outpatient (CLI) | payer MEDICARE, SELFPAY ==
--- NOTE | 2022-11-11 15:41 | MR_ITS ---
PROCEDURE INFORMATION: Exam: MR Lumbar Spine Without Contrast Exam date and time: 11/11/2022 3:46 PM Age: 77 years old Clinical indication: Low back pain TECHNIQUE: Imaging protocol: Magnetic resonance imaging of the lumbar spine without contrast. COMPARISON: No relevant prior studies available. FINDINGS: Bones/joints: Alignment of the lumbar spine is anatomic. The vertebral body heights are maintained. No acute osseous injury. There are Modic type 1 endplate degenerative changes present anteriorly/inferiorly in the L3 vertebrae. Spinal cord: Visualized cord, conus medullaris and cauda equina are unremarkable without compression. L1-L2: L1-L2 small posterior annular tear is seen without significant disc bulging or stenosis. L2-L3: L2-L3 minimal saddle shaped disc bulging is seen without stenosis. L3-L4: L3-L4 there is mild diffuse disc bulging and degenerative hypertrophy of the facets resulting in moderate stenosis of the spinal canal and mild narrowing of both neural foramina. L4-L5: L4-L5 minimal saddle shaped disc bulging is seen without stenosis of the spinal canal. There is degenerative hypertrophy of the facets on both sides with small bilateral facet effusions. There is mild bilateral neural foraminal stenosis present. L5-S1: L5-S1 small central focal disc protrusion measuring 8 mm transverse and 4 mm AP. This causes mild stenosis of the spinal canal. There is degenerative hypertrophy of the facets on both sides without significant neural foraminal narrowing. Soft tissues: Unremarkable. 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
== END ==
LOC: RAD 15:37
PROVIDERS: PCP Emergency Medicine; Visit Provider Emergency Medicine
DX: M54.9 Dorsalgia, unspecified (principal); M54.50 Low back pain, unspecified
CPT/HCPCS: 72148; 76376

== ENCOUNTER → 2022-11-30 10:51 | Outpatient (POV) | payer MEDICARE, SELFPAY ==
[2022-11-30 10:54] VITALS: BP 121/91; PULSE 67; RESP 18; O2SAT 97; BMI 27.6
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
== END | disposition home or self-care (01) ==
PROVIDERS: PCP Emergency Medicine; Visit Provider Nurse Practitioner Family
DX: M54.50 Low back pain, unspecified; G89.29 Other chronic pain; M51.16 Intervertebral disc disorders with radiculopathy, lumbar region; M47.26 Other spondylosis with radiculopathy, lumbar region
CPT/HCPCS: 99202; G0463

== ENCOUNTER 2022-12-15 08:35 | Day surgery (SDC) | payer MEDICARE, SELFPAY ==
[2022-12-15 08:49] VITALS: BP 106/59; PULSE 66; RESP 18; O2SAT 98; BMI 28.1
[2022-12-15 09:12] VITALS: BP 124/80; PULSE 71; RESP 18; O2SAT 98
--- NOTE | 2022-12-15 09:19 | EXP.PAIN.PRO ---
Procedure Date: 12/15/22 Time: 09:00 Anesthesiologist:: Dandre Loyola CRNA Complications:: None Pre-procedure Diagnosis:: Degenerative disc disease lumbar spine multilevels. Lumbar radiculopathy Post-procedure Diagnosis:: Same. Indications for Procedure:: Patient is a very pleasant 77-year-old male that comes our clinic today for lumbar epidural steroid injection at the L4-5 level. Patient has had low back pain as well as bilateral hip and leg radicular symptoms for several months. He describes low back pain as constant, dull, aching. He rates his pain 6/10. Procedure Details:: Procedure: Lumbar epidural steroid injection under fluoroscopy Informed consent was obtained and the risks and benefits of the procedure were explained to the patient. The patient was taken to the procedure room and noninvasive monitors placed, including noninvasive blood pressure cuff and pulse oximeter. The back was viewed using C-arm Fluoroscopy and prepped using Chloraprep as a cleansing solution and the L4-L5 interspace was palpated. Skin and subcutaneous tissues were anesthetized using lidocaine 1.5% and a 25-gauge needle. After this, an 18-gauge Touhy epidural needle was placed into the L4-L5 interspace and advanced using fluoroscopic guidance and loss of resistance to air until the epidural space was encountered. After confirmation of needle placement in the epidural space, with dye, a solution containing normal saline, 3 mL and Depo-Medrol 80 mg were incrementally injected into the lumbar epidural space. The patient tolerated the procedure well with no complications. The patient was observed in the Pain Clinic and then discharged home neurologically intact. Plan and Disposition:: Patient was discharged without incident.
[2022-12-15 09:21] VITALS: BP 109/77; PULSE 73; RESP 18; O2SAT 96
[2022-12-15 09:23] VITALS: BP 109/77; PULSE 73; RESP 18; O2SAT 96
== END 2022-12-15 09:12 | disposition home or self-care (01) ==
PROVIDERS: PCP Emergency Medicine; Visit Provider Nurse Anesthetist, Certified Registered
DX: M51.16 Intervertebral disc disorders with radiculopathy, lumbar region (principal)
CPT/HCPCS: 62323; J1040

== ENCOUNTER 2023-01-04 18:08 | Emergency (ER) | payer MEDICARE, SELFPAY ==
[2023-01-04 18:09] VITALS: BP 122/60; PULSE 78; RESP 16; TEMP 36.7; O2SAT 98; BMI 28.4
--- NOTE | 2023-01-04 18:21 | ECG_ITS ---
APPROVED REPORT Exam: Resting ECG HR:76 bpm ECG Measurements Heart Rate 76 AXES QRSd 134 QRS 0 QT 403 T -3 QTc 433 Conclusion ATRIAL FIBRILLATION WITH ABERRANT CONDUCTION OR VENTRICULAR PREMATURE COMPLEXES INDETERMINATE AXIS RIGHT BUNDLE BRANCH BLOCK [120+ ms QRS DURATION, UPRIGHT V1, 40+ ms S IN I/aVL/V4/V5/V6] POSSIBLE ANTERIOR MYOCARDIAL INFARCTION , PROBABLY OLD [30 ms Q WAVE IN V3/V4, OR R < 0.2 mV IN V4] ABNORMAL ECG UNCONFIRMED REPORT Electronically signed by : Alo Vines MD 01/05/2023 19:43:11
[2023-01-04 18:41] VITALS: BMI 28.4
--- NOTE | 2023-01-04 18:42 | XR_ITS ---
PROCEDURE INFORMATION: Exam: XR Chest Exam date and time: 01/04/2023 6:50 PM Age: 77 years old Clinical indication: Other: Syncopy; Patient HX: Passed out while working outdoors today in high heat. ; Additional info: Syncope TECHNIQUE: Imaging protocol: Radiologic exam of the chest. Views: 1 view. COMPARISON: CR CXR CHEST(2 VIEWS-NOT PORTABLE) 05/07/2017 7:52 PM FINDINGS: Lungs: Unremarkable. No consolidation. Pleural spaces: Unremarkable. No pleural effusion. No pneumothorax. Heart/Mediastinum: Unremarkable. No cardiomegaly. Post open heart changes redemonstrated. Bones/joints: Unremarkable. IMPRESSION: Stable chest x-ray with no acute disease.
[2023-01-04 18:51] LABS: Chloride 101 mmol/L (98-107); Potassium 4.7 mmoL/L (3.5-5.1); Sodium 137 mmol/L (136-145)
[2023-01-04 18:52] LABS: Basophils # 0.1 K/mm3 (0-0.2); Basophils % 0.5 % (0.1-2.0); Eosinophils # 0.3 K/mm3 (0.0-0.4); Eosinophils % 2.8 % (0.1-12.0); Hematocrit 42.4 % (42.0-52.0); Hemoglobin 13.9 g/dL (14.1-18.0); Lymphocytes # 1.4 K/mm3 (0.7-4.5); Lymphocytes % 13.8 % (10-50); Mean Corpuscular HGB Conc 32.7 g/dL (31.8-35.4); Mean Corpuscular Hemoglobin 31.5 pg (27.0-31.2); Mean Corpuscular Volume 96.2 fl (80-94); Monocytes # 0.8 K/mm3 (0.1-1.0); Monocytes % 7.6 % (1.7-9.3); Neutrophils # 7.5 K/mm3 (1.8-7.8); Neutrophils % 75.2 % (37.0-80.0); Platelet Count 179 K/mm3 (142-424); Red Blood Count 4.41 M/mm3 (4.60-6.20); Red Cell Distribution Width 13.5 % (11.5-17.5); White Blood Count 9.9 K/mm3 (4.8-10.8)
[2023-01-04 18:54] LABS: Anion Gap 14.7 mEq/L (5-15); Blood Urea Nitrogen 28 mg/dl (9-20); Calcium 9.5 mg/dl (8.4-10.2); Carbon Dioxide 26 mmol/L (22.0-30.0); Creatinine Clearance Estimated 43 mL/min (50-200); Estimated Glomerular Filt Rate 39 ml/min (>60); GFR (African American) 47 ML/MIN (>60); Glucose 201 mg/dl (74-100)
--- NOTE | 2023-01-04 19:04 | PC.NURSE ---
ER MD Beavers at
--- NOTE | 2023-01-04 19:10 | [facility].EDGENADL ---
Discharge Plan Disposition Patient Disposition: Home, Self-Care Condition: Good Prescriptions Prescriptions: No Action Complete Multivitamin-Mineral 18-400 mg-mcg tablet 1 tab PO DAILY metoprolol succinate 25 mg tablet extended release 24 hr 25 mg PO DAILY Qty: 90 5RF amlodipine 5 mg tablet 5 mg PO DAILY Qty: 90 5RF gabapentin 400 mg capsule 400 mg PO TID Qty: 90 1RF clopidogrel 75 mg tablet See Rx Instructions .ROUTE .COMPLEX Qty: 90 0RF Dose Instruction: TAKE 1 TABLET BY MOUTH DAILY Rx Instructions: TAKE 1 TABLET BY MOUTH DAILY lisinopril 5 mg tablet See Rx Instructions .ROUTE .COMPLEX Qty: 90 0RF Dose Instruction: TAKE 1 TABLET BY MOUTH DAILY Rx Instructions: TAKE 1 TABLET BY MOUTH DAILY Livalo 4 mg tablet See Rx Instructions .ROUTE .COMPLEX Qty: 90 0RF Dose Instruction: TAKE 1 TABLET BY MOUTH ONCE A DAY FOR CHOLESTEROL Rx Instructions: TAKE 1 TABLET BY MOUTH ONCE A DAY FOR CHOLESTEROL cetirizine 10 mg tablet See Rx Instructions .ROUTE .COMPLEX Rx Instructions: TAKE 1 TABLET BY MOUTH DAILY FOR ALLERGY SYMPTOMS glimepiride 2 mg tablet See Rx Instructions .ROUTE .COMPLEX Rx Instructions: TAKE 1 TABLET BY MOUTH TWICE DAILY FOR DIABETES tamsulosin [Flomax] 0.4 mg capsule 0.4 mg PO DAILY metformin 1,000 mg tablet See Rx Instructions .ROUTE .COMPLEX Rx Instructions: TAKE 1 TABLET BY MOUTH TWICE DAILY FOR DIABETES finasteride [Proscar] 5 mg tablet 5 mg PO DAILY Januvia 100 mg tablet See Rx Instructions .ROUTE .COMPLEX Rx Instructions: TAKE 1 TABLET BY MOUTH EVERY DAY hydrochlorothiazide 12.5 mg tablet 12.5 mg PO DAILY tizanidine [Zanaflex] 4 mg tablet 4 mg PO HS Referrals Follow up/Referrals: Saul Schulz MD [Primary Care Provider] - See instructions Activity Restrictions/Add. Instructions Additional Instructions/Restrictions: As discussed, it appears that your kidney function is worse than your baseline, your creatinine which is a marker of your kidney function is 1.70. On August 10, 2022 it was 1.30. It is likely that your fluids helped to resolve your kidney issue but I would like you to have your kidney function rechecked within the next 2 days.Please return to the emergency department if you experience any new or worsening symptoms. Clinical Impressions Clinical Impression: Acute kidney injury (nontraumatic) Instructions Patient Instructions: DI for Syncope in Adults (Fainting), DI for Syncope in Children (Fainting) Discharge ED Provider: José Luis [facility] HPI General Chief complaint: Syncope Stated complaint: BP 80/37 feels weak Time Seen by Provider: 01/04/23 19:02 Mode of Arrival: Ambulatory Source of Information: Patient Limitations: No Limitations Description of Symptoms (Recalled from ER Triage Doc. by RN): Pt reports got dizzy while out in the sun today. Pt reports syncople episode, states was leaning against his truck when had syncople episode, witnesses state no known fall. Family reports pt had low bp at home 80s/40s. States pt has hx of vertigo so was given 2 dramamine for dizziness. History of Present Illness HPI narrative: Patient presents for evaluation of syncopal episode, lasting only a few seconds, with rapid return to baseline, in the setting of working outside today, reports decreased p.o. intake, family at bedside reported hypotension to 80s over 40s, previous therapies include to Dramamine with some improvement of symptoms. Patient was in his normal state of health prior to onset of symptoms, denies any pain at this time, denies any preceding palpitations or shortness of breath, has not had similar symptoms before, patient is noted to have history of vertigo and CAD. Symptoms were not exertional in nature, patient was bending over to tie his shoe, reported lightheadedness, no associated head injury, no reporte
[2023-01-04 19:24] LABS: Creatine Kinase 82 U/L (55-170)
[2023-01-04 19:33] LABS: D-Dimer 0.75 ug/mL (0.0-0.5)
[2023-01-04 19:35] LABS: Troponin I < 0.01 ng/ml (0.00-0.034)
[2023-01-04 22:00] LABS: Troponin I < 0.01 ng/ml (0.00-0.034)
[2023-01-04 22:14] VITALS: BP 114/75; PULSE 71; RESP 16; TEMP 36.7; O2SAT 98
== END 2023-01-04 22:19 | disposition home or self-care (01) ==
PROVIDERS: Emergency Provider Emergency Medicine; PCP Emergency Medicine
DX: N17.9 Acute kidney failure, unspecified (principal); R53.1 Weakness; R55 Syncope and collapse; I45.19 Other right bundle-branch block; I25.10 Atherosclerotic heart disease of native coronary artery without angina pectoris; E11.628 Type 2 diabetes mellitus with other skin complications
CPT/HCPCS: 36415; 71045; 80048; 82550; 84484; 85025; 85378; 93005; 96360; 99285

== ENCOUNTER → 2023-01-12 20:58 | Outpatient (CLI) | payer MEDICARE, SELFPAY ==
[2023-01-12 22:26] LABS: Chloride 103 mmol/L (98-107); Potassium 4.7 mmoL/L (3.5-5.1); Sodium 137 mmol/L (136-145)
[2023-01-12 22:29] LABS: Anion Gap 13.7 mEq/L (5-15); Blood Urea Nitrogen 21 mg/dl (9-20); Carbon Dioxide 25 mmol/L (22.0-30.0); Estimated Glomerular Filt Rate 49 ml/min (>60); GFR (African American) 59 ML/MIN (>60)
[2023-01-12 22:30] LABS: Calcium 8.5 mg/dl (8.4-10.2); Glucose 251 mg/dl (74-100)
== END ==
PROVIDERS: PCP Emergency Medicine; Visit Provider Emergency Medicine
DX: I25.10 Atherosclerotic heart disease of native coronary artery without angina pectoris (principal); I10 Essential (primary) hypertension; E11.40 Type 2 diabetes mellitus with diabetic neuropathy, unspecified; Z79.84 Long term (current) use of oral hypoglycemic drugs
CPT/HCPCS: 80048

== ENCOUNTER → 2023-03-02 23:27 | Outpatient (CLI) | payer MEDICARE, SELFPAY ==
[2023-03-02 19:02] LABS: Prostate Specific Ag Screen < 0.1 ng/ml (0.0-4.0)
== END ==
PROVIDERS: PCP Emergency Medicine; Visit Provider Emergency Medicine
DX: Z12.5 Encounter for screening for malignant neoplasm of prostate (principal)
CPT/HCPCS: G0103

== ENCOUNTER 2023-08-27 08:35 | Outpatient (CLI) | payer MEDICARE, SELFPAY ==
[2023-08-27 09:21] LABS: Basophils # 0.1 K/mm3 (0-0.2); Basophils % 1.1 % (0.1-2.0); Eosinophils # 0.3 K/mm3 (0.0-0.4); Hematocrit 45.4 % (42.0-52.0); Hemoglobin 14.4 g/dL (14.1-18.0); Lymphocytes # 1.3 K/mm3 (0.7-4.5); Lymphocytes % 16.8 % (10-50); Mean Corpuscular HGB Conc 31.6 g/dL (31.8-35.4); Mean Corpuscular Hemoglobin 31.3 pg (27.0-31.2); Mean Platelet Volume 8.4 fl (7.4-10.4); Monocytes # 0.8 K/mm3 (0.1-1.0); Monocytes % 10.4 % (1.7-9.3); Neutrophils # 5.3 K/mm3 (1.8-7.8); Neutrophils % 67.7 % (37.0-80.0); Platelet Count 180 K/mm3 (142-424); Red Blood Count 4.59 M/mm3 (4.60-6.20); White Blood Count 7.8 K/mm3 (4.8-10.8)
[2023-08-27 09:53] LABS: Alanine Aminotransferase 17 U/L (12-78); Albumin Level 3.4 g/dl (3.5-5.0); Albumin/Globulin Ratio 1.4 (1.1-1.8); Alkaline Phosphatase 112 U/L (38-126); Anion Gap 8.7 mEq/L (5-15); Aspartate Amino Transferase 28 U/L (17-59); Bilirubin,Total 0.8 mg/dl (0.2-1.3); Blood Urea Nitrogen 17 mg/dl (9-20); Calcium 9.1 mg/dl (8.4-10.2); Carbon Dioxide 26 mmol/L (22.0-30.0); Chloride 109 mmol/L (98-107); Chol/HDL Ratio 3.9 (1-3.5); Cholesterol 195 mg/dl (140-200); Estimated Glomerular Filt Rate 58 ml/min (>60); GFR (African American) 71 ML/MIN (>60); Globulin 2.5 g/dL (1.3-3.2); Glucose 98 mg/dl (74-100); HDL Cholesterol 50 mg/dl (40-60); Potassium 4.7 mmoL/L (3.5-5.1); Sodium 139 mmol/L (136-145); Total Protein,Serum 5.9 g/dl (6.3-8.2); Triglycerides 119 mg/dl (30-150); VLDL Cholesterol 24 mg/dL (0-40)
[2023-08-27 10:04] LABS: Direct LDL Cholesterol 92.25 mg/dL (100-129)
[2023-08-27 10:09] LABS: 25-OH Vitamin D, Total 39.4 ng/mL (30-100)
[2023-08-27 10:10] LABS: Free T4 (Free Thyroxine) 1.16 ng/dl (0.78-2.19)
[2023-08-27 10:23] LABS: Thyroid Stimulating Hormone 5.18 uIU/mL (0.465-4.68)
[2023-08-27 10:40] LABS: Hemoglobin A1C 8.4 % (4.0-6.0)
== END 2023-08-27 23:59 | disposition home or self-care (01) ==
LOC: LAB 08:37
PROVIDERS: PCP Internal Medicine; Visit Provider Internal Medicine
DX: K59.00 Constipation, unspecified; E03.9 Hypothyroidism, unspecified; E55.9 Vitamin D deficiency, unspecified; R53.83 Other fatigue; E11.40 Type 2 diabetes mellitus with diabetic neuropathy, unspecified; Z79.899 Other long term (current) drug therapy
CPT/HCPCS: 36415; 80053; 80061; 82306; 83036; 84439; 84443; 85025

== ENCOUNTER 2023-09-12 12:39 | Emergency (ER) | payer MEDICARE, SELFPAY ==
[2023-09-12 13:30] VITALS: BP 151/90; PULSE 68; RESP 17; TEMP 36.8; O2SAT 98; BMI 33.1
--- NOTE | 2023-09-12 13:58 | EXP.UTC ---
Discharge Plan Disposition Patient Disposition: Home, Self-Care Condition: Good Prescriptions Prescriptions: No Action sulfamethoxazole-trimethoprim [Bactrim DS] 800-160 mg tablet 1 tab PO DAILY 14 Days Qty: 14 0RF gabapentin 600 mg tablet 600 mg PO TID Qty: 90 2RF clopidogrel 75 mg tablet See Rx Instructions .ROUTE .COMPLEX Qty: 90 0RF Dose Instruction: TAKE 1 TABLET BY MOUTH DAILY Rx Instructions: TAKE 1 TABLET BY MOUTH DAILY Januvia 100 mg tablet See Rx Instructions .ROUTE .COMPLEX Qty: 90 0RF Rx Instructions: TAKE 1 TABLET BY MOUTH EVERY DAY aspirin 81 mg tablet 81 mg PO DAILY amlodipine 5 mg tablet 5 mg PO DAILY Qty: 90 5RF finasteride 5 mg tablet See Rx Instructions .ROUTE .COMPLEX Qty: 30 0RF Dose Instruction: TAKE 1 TABLET BY MOUTH DAILY Rx Instructions: TAKE 1 TABLET BY MOUTH DAILY glimepiride 2 mg tablet See Rx Instructions .ROUTE .COMPLEX Qty: 180 0RF Dose Instruction: TAKE 1 TABLET BY MOUTH TWICE DAILY FOR DIABETES Rx Instructions: TAKE 1 TABLET BY MOUTH TWICE DAILY FOR DIABETES lisinopril 5 mg tablet See Rx Instructions .ROUTE .COMPLEX Qty: 90 0RF Dose Instruction: TAKE 1 TABLET BY MOUTH DAILY Rx Instructions: TAKE 1 TABLET BY MOUTH DAILY metformin 1,000 mg tablet 1,000 mg PO DAILY Qty: 30 2RF metoprolol succinate 25 mg tablet extended release 24 hr 25 mg PO DAILY Qty: 90 5RF tamsulosin 0.4 mg capsule See Rx Instructions .ROUTE .COMPLEX Qty: 30 0RF Dose Instruction: TAKE 1 CAPSULE BY MOUTH DAILY Rx Instructions: TAKE 1 CAPSULE BY MOUTH DAILY pitavastatin calcium [Livalo] 4 mg tablet 4 mg PO DAILY Qty: 90 3RF Farxiga 10 mg tablet 10 mg PO DAILY Qty: 90 0RF cetirizine 10 mg tablet See Rx Instructions .ROUTE .COMPLEX Rx Instructions: TAKE 1 TABLET BY MOUTH DAILY FOR ALLERGY SYMPTOMS Referrals Follow up/Referrals: Provider,Referral, MD [Primary Care Provider] - See instructions Activity Restrictions/Add. Instructions Additional Instructions/Restrictions: May change packing daily. Continue Bactrim. Return to PCP or ER for any worsening signs or symptoms including increasing pain increasing size difficulty with defecation etc. as needed. Clinical Impressions Clinical Impression: Abscess Instructions Patient Instructions: DI for Skin Abscess Discharge ED Provider: Robert Gomez [facility] HPI General Chief complaint: Skin/Abscess/Foreign Body Stated complaint: pain in buttocks Mode of Arrival: Ambulatory Source of Information: Patient Limitations: No Limitations Time Seen by Provider: 09/12/23 13:58 Description of Symptoms (Recalled from Triage Doc. by RN): Pt has a knot on bottom right buttocks. He was seen by primary 2 days ago and was given bactrim and has gotten worse. HEENT Symptoms (Recalled from RN notes): Yes Resp Symptoms (Recalled from RN notes): No Skin Symptoms (Recalled from RN notes): No MS Symptoms (Recalled from RN notes): No Functional Status (Recalled from RN notes): n/a History of Present Illness Provider Complaint: Patient states that he has a large knot on his right buttock area that has continued to get larger over the last couple of days and he is unable to sit on that side and very uncomfortable States he seen his PCP a couple days ago and was placed on antibiotics but has not helped and it has continued to get worse Related Data Home Medications Medication Instructions Recorded Confirmed cetirizine 10 mg tablet See Rx Instructions .Route 11/30/22 09/12/23 .COMPLEX ALLERGIES aspirin 81 mg tablet 81 mg PO DAILY 09/07/23 09/12/23 Previous Rx's Medication Instructions Recorded amlodipine 5 mg tablet 5 mg PO DAILY blood pressure #90 05/12/23 tabs finasteride 5 mg tablet See Rx Instructions .Route 05/12/23 .COMPLEX #30 tabs glimepiride 2 mg tablet See Rx Instructions .Route 05/12/23 .COMPLEX #180 tabs lisinopril 5 mg tablet See Rx Instructions .Route 05/12/23 .COMPLEX #90 tabs metformin 1,000 mg tablet 1,000 mg PO DAILY Diabetes #30 tabs 05/12/23 metoprolol succinate 25 mg 25 mg PO DAILY blood pressure #90 05/12/23 tablet,extended release 24 hr tabs tamsulosin 0.4 mg capsule See Rx Instructions .Route 05/12/23 .COMPLEX #30 caps clopidogrel 75 mg tablet See Rx Instructions .Route 06/29/23 .COMPLEX #90 tabs gabapentin 600 mg tablet 600 mg PO TID neuropathy #90 tabs 06/29/23 pitavastatin calcium 4 mg tablet 4 mg PO DAILY #90 tabs 06/29/23 (Livalo) sitagliptin phosphate 100 mg See Rx Instructions .Route 06/29/23 tablet (Januvia) .COMPLEX Diabetes #90 tabs dapagliflozin propanediol 10 mg 10 mg PO DAILY Diabetes #90 tabs 08/25/23 tablet (Farxiga) sulfamethoxazole 800 1 tab PO DAILY 14 days #14 tabs 09/10/23 mg-trimethoprim 160 mg tablet (Bactrim DS) Allergies Allergy/AdvReac Type Severity Reaction Status Date / Time No Known Drug Allergies Allergy Unknown Verified 09/12/23 13:49 [NKDA] Worker's Comp Is this a Worker's Comp case?: No [facility] Disclaimer: The information contained in this section may have been updated after the patient was seen, as this information can be updated by other users. Medical History DDD (degenerative disc disease) Carotid bruit Diabetic foot Dyspnea Dizziness Family History Other No significant family history Social History Smoking Status: Never smoker alcohol intake: never substance use type: denies use current occupational status: retired Travel in the last 8 weeks: None household members: significant other housing: house current occupational exposures/hazards: No caffeine: Yes ROS Obtained: Yes All systems reviewed & no additional complaints except as documented and Yes Systems reviewed as appropriate & no additional complaints except as documented Constitutional Constitutional: Reports system reviewed and no additional complaints, except as documented, Reports as per HPI, Denies body ache, Denies chills and Denies fever(s) ENT Ears, Nose, Mouth, and Throat: Reports system reviewed and no additional complaints, except as documented and Reports as per HPI Cardiovascular Cardiovascular: Reports system reviewed and no additional complaints, except as documented and Reports as per HPI Respiratory Respiratory: Reports system reviewed and no additional complaints, except as documented and Reports as per HPI Gastrointestinal Gastrointestingal: Reports system reviewed and no additional complaints, except as documented and as per HPI Integumentary/Breasts Skin/Breast: Reports system reviewed and no additional complaints, except as documented, Reports as per HPI and Reports other Comments: abscess on right buttock area that has continued to get larger over the last couple of days and unable to sit on that side due to pain Physical Exam General General appearance: alert and in no apparent distress Respiratory Respiratory exam: Present normal lung sounds bilaterally Cardiovascular Cardiovascular exam: Present regular rate, normal rhythm and normal heart sounds Neurological Exam Neurological exam: Present alert and oriented X3 Skin Skin exam: Present other Expanded Skin Exam Type of lesion: Present abscess Body image: 1. abscess noted, red, warm, tender, hard to touch Medical Decision Making Chetan Inquiry Pt receiving controlled substance: No Chetan was queried for this patient: No Vital Signs: 09/12/23 13:30 Temperature 98.3 F Temperature Source Oral Pulse Rate [Right Radial] 68 Respiratory Rate 17 Blood Pressure [Right Arm] 151/90 H Blood Pressure Mean [Right Arm] 110 Blood Pressure Source [Right Arm] Automatic Cuff Blood Pressure Position [Right Arm] Sitting 02 Sat by Pulse Oximetry 98 Oxygen Delivery Method Room Air Medical Decision Narrative: Patient reports hx of diabetes States that he was seen by PCP 2 days ago for abscess on right buttock and was prescribed antibiotics but it has continued to get worse. States that now it is larger and more tender and having pain when he tries to sit on that side so he has been standing Denies fever or chills Discussed with patient and due to patient being diabetic and on Plavix discussed transfer to the ED for further evaluation and treatment and he agreed Patient was moved to the ED for further evaluation and treatment
--- NOTE | 2023-09-12 14:06 | ED_ITS ---
<Statement entered by Robert Gomez MD - 09/14/23 23:12> I was consulted by the JARRETT, and we discussed the complexity of the problems being addressed. I approved the treatment and management plan for this patient's care in the emergency department, thus performing a substantive portion of the medical decision making. Robert Gomez MD, BUCKY, FACEP Discharge Plan Disposition Patient Disposition: Home, Self-Care Condition: Good Prescriptions Prescriptions: No Action sulfamethoxazole-trimethoprim [Bactrim DS] 800-160 mg tablet 1 tab PO DAILY 14 Days Qty: 14 0RF gabapentin 600 mg tablet 600 mg PO TID Qty: 90 2RF clopidogrel 75 mg tablet See Rx Instructions .ROUTE .COMPLEX Qty: 90 0RF Dose Instruction: TAKE 1 TABLET BY MOUTH DAILY Rx Instructions: TAKE 1 TABLET BY MOUTH DAILY Januvia 100 mg tablet See Rx Instructions .ROUTE .COMPLEX Qty: 90 0RF Rx Instructions: TAKE 1 TABLET BY MOUTH EVERY DAY aspirin 81 mg tablet 81 mg PO DAILY amlodipine 5 mg tablet 5 mg PO DAILY Qty: 90 5RF finasteride 5 mg tablet See Rx Instructions .ROUTE .COMPLEX Qty: 30 0RF Dose Instruction: TAKE 1 TABLET BY MOUTH DAILY Rx Instructions: TAKE 1 TABLET BY MOUTH DAILY glimepiride 2 mg tablet See Rx Instructions .ROUTE .COMPLEX Qty: 180 0RF Dose Instruction: TAKE 1 TABLET BY MOUTH TWICE DAILY FOR DIABETES Rx Instructions: TAKE 1 TABLET BY MOUTH TWICE DAILY FOR DIABETES lisinopril 5 mg tablet See Rx Instructions .ROUTE .COMPLEX Qty: 90 0RF Dose Instruction: TAKE 1 TABLET BY MOUTH DAILY Rx Instructions: TAKE 1 TABLET BY MOUTH DAILY metformin 1,000 mg tablet 1,000 mg PO DAILY Qty: 30 2RF metoprolol succinate 25 mg tablet extended release 24 hr 25 mg PO DAILY Qty: 90 5RF tamsulosin 0.4 mg capsule See Rx Instructions .ROUTE .COMPLEX Qty: 30 0RF Dose Instruction: TAKE 1 CAPSULE BY MOUTH DAILY Rx Instructions: TAKE 1 CAPSULE BY MOUTH DAILY pitavastatin calcium [Livalo] 4 mg tablet 4 mg PO DAILY Qty: 90 3RF Farxiga 10 mg tablet 10 mg PO DAILY Qty: 90 0RF cetirizine 10 mg tablet See Rx Instructions .ROUTE .COMPLEX Rx Instructions: TAKE 1 TABLET BY MOUTH DAILY FOR ALLERGY SYMPTOMS Referrals Follow up/Referrals: Provider,Referral, MD [Primary Care Provider] - See instructions Activity Restrictions/Add. Instructions Additional Instructions/Restrictions: May change packing daily. Continue Bactrim. Return to PCP or ER for any worsen ing signs or symptoms including increasing pain increasing size difficulty with defecation etc. as needed. Clinical Impressions Clinical Impression: Abscess Instructions Patient Instructions: DI for Skin Abscess Discharge ED Provider: Robert Gomez General Adult HPI General Chief complaint: Skin/Abscess/Foreign Body Stated complaint: pain in buttocks Time Seen by Provider: 09/12/23 13:58 Mode of Arrival: Ambulatory Source of Information: Patient Limitations: No Limitations Description of Symptoms (Recalled from ER Triage Doc. by RN): Pt has a knot on bottom right buttocks. He was seen by primary 2 days ago and was given bactrim and has gotten worse. History of Present Illness HPI narrative: Presents for evaluation of an abscess on his right gluteus. Patient reports that it has gotten larger in size and painful. Patient saw PCP and was placed on Bactrim 3 days ago however despite that it is continued to enlarge. Patient stated it started as a pimple and has progressed. Patient reports no problems with defecation or lamination. He denies fevers or chills. Related Data Home Medications Medication Instructions Recorded Confirmed cetirizine 10 mg tablet See Rx Instructions .Route 11/30/22 09/12/23 .COMPLEX ALLERGIES aspirin 81 mg tablet 81 mg PO DAILY 09/07/23 09/12/23 Previous Rx's Medication Instructions Recorded amlodipine 5 mg tablet 5 mg PO DAILY blood pressure #90 05/12/23 tabs finasteride 5 mg tablet See Rx Instructions .Route 05/12/23 .COMPLEX #30 tabs glimepiride 2 mg tablet See Rx Instructions .Route 05/12/23 .COMPLEX #180 tabs lisinopril 5 mg tablet See Rx Instructions .Route 05/12/23 .COMPLEX #90 tabs metformin 1,000 mg tablet 1,000 mg PO DAILY Diabetes #30 tabs 05/12/23 metoprolol succinate 25 mg 25 mg PO DAILY blood pressure #90 05/12/23 tablet,extended release 24 hr tabs tamsulosin 0.4 mg capsule See Rx Instructions .Route 05/12/23 .COMPLEX #30 caps clopidogrel 75 mg tablet See Rx Instructions .Route 06/29/23 .COMPLEX #90 tabs gabapentin 600 mg tablet 600 mg PO TID neuropathy #90 tabs 06/29/23 pitavastatin calcium 4 mg tablet 4 mg PO DAILY #90 tabs 06/29/23 (Livalo) sitagliptin phosphate 100 mg See Rx Instructions .Route 06/29/23 tablet (Januvia) .COMPLEX Diabetes #90 tabs dapagliflozin propanediol 10 mg 10 mg PO DAILY Diabetes #90 tabs 08/25/23 tablet (Farxiga) sulfamethoxazole 800 1 tab PO DAILY 14 days #14 tabs 09/10/23 mg-trimethoprim 160 mg tablet (Bactrim DS) Allergies Allergy/AdvReac Type Severity Reaction Status Date / Time No Known Drug Allergies Allergy Unknown Verified 09/12/23 13:49 [NKDA] [facility] Disclaimer: The information contained in this section may have been updated after the patient was seen, as this information can be updated by other users. Medical History DDD (degenerative disc disease) Carotid bruit Diabetic foot Dyspnea Dizziness Family History Other No significant family history Social History Smoking Status: Never smoker alcohol intake: never substance use type: denies use current occupational status: retired Travel in the last 8 weeks: None household members: significant other housing: house current occupational exposures/hazards: No caffeine: Yes ROS Obtained: Yes Systems reviewed as appropriate & no additional complaints except as documented Physical Exam General General appearance: alert and in no apparent distress Respiratory Respiratory exam: Present normal lung sounds bilaterally; Absent respiratory distress Cardiovascular Cardiovascular exam: Present regular rate and normal rhythm Neurological Exam Neurological exam: Present alert and oriented X3 Other Other exam information: Patient has a 6 cm wide by 7 cm long area of erythema and induration at the verge of the cleft but not entering into it at the midpoint of the cleft on the right gluteus. There is a central area of pointing that is approximately 1 x 2 cm in the center of that large area of cellulitis. Does not appear to be spontaneously drained at the moment. Is exquisitely tender to palpation and fluctuant in the middle. Medical Decision Making Medical Records Medical records reviewed: Yes I reviewed the patient's medical records. Chetan Inquiry Pt receiving controlled substance: No Vital Signs: 09/12/23 13:30 09/12/23 14:13 Temperature 98.3 F 97.9 F Temperature Source Oral Oral Pulse Rate [Right Radial] 68 72 Respiratory Rate 17 18 Blood Pressure [Right Arm] 151/90 H 109/58 L Blood Pressure Mean [Right Arm] 110 75 Blood Pressure Source [Right Arm] Automatic Cuff Blood Pressure Position [Right Arm] Sitting 02 Sat by Pulse Oximetry 98 97 Oxygen Delivery Method Room Air Room Air Orders (Tests/Meds): ED MEDICATIONS Generic Name Dose Route Start Last Admin Trade Name Daniel PRN Reason Stop Dose Admin Lidocaine/Epinephrine 20 ml 09/12/23 14:07 09/12/23 14:19 Lidocaine 1% W/Epi 1:100,000 20ml Vial SQ 09/12/23 14:08 1 vial ONCE ONE Administration Medical Decision Narrative: In summary patient is a 78-year-old male who presents to the emergency department for evaluation of abscess. Patient is hemodynamically stable upon arrival, afebrile. Physical exam is remarkable for furuncle on the right gluteus near the verge of the cleft medially. There is an area of induration and fluctuance in the very center that does not cross into the cleft.. Differential diagnosis includes cellulitis versus abscess. Area sterilely prepped and draped then 20 cc of lidocaine with epinephrine were infiltrated in the soft tissues. Incision was made with 11 blade with only 2 to 3 cc of pus expressed. Exploration of the wound reveals necrotic soft tissue that is not yet liquefied. Wound explored and packed with quarter inch gauze and nonocclusive dressing applied afterwards. Patient to continue taking Bactrim. Patient needs to change packing daily. Return to the ER for any worsening signs or symptoms including increasing pain and increasing drainage increasing size difficulty with defecation. Critical Care Critical Care Time Critical Care Time: No
[2023-09-12 14:13] VITALS: BP 109/58; PULSE 72; RESP 18; TEMP 36.6; O2SAT 97; BMI 27.6
[2023-09-12] MEDS: LIDOCAINE 1% W/EPI 1:100,000 20ML VIAL 20 ML SQ (14:19)
[2023-09-12 14:47] VITALS: BP 112/60; PULSE 74; RESP 20; TEMP 36.6; O2SAT 98
--- NOTE | 2023-09-15 12:01 | PC.NURSE ---
WOUND CULTURE DISCUSSED WITH DR GOMEZ, PT ON BACTRIM. NO NEW ORDERS
== END 2023-09-12 14:53 | disposition home or self-care (01) ==
LOC: UTC 12:43 → ER 14:05
PROVIDERS: Emergency Provider Student in an Organized Health Care Education/Training Program
DX: L02.31 Cutaneous abscess of buttock (principal); B95.62 Methicillin resistant Staphylococcus aureus infection as the cause of diseases classified elsewhere
CPT/HCPCS: 10060; 87070; 87205; 99283

== ENCOUNTER 2023-09-21 09:26 | Outpatient (CLI) | payer MEDICARE, SELFPAY ==
--- NOTE | 2023-09-21 09:30 | CA_ITS ---
APPROVED REPORT EXAM: Comprehensive 2D, Doppler, and color-flow Echocardiogram Manager Mobile: Elizabeth Cottrell CRT Ht: 5 ft 9 in Wt: 185lbs BSA: 2.00 BP: 130/56 mmHg Indications: Chest Pain, Shortness of Breath, CAD, CABG 2D Dimensions LA Volume 46.50 mL LA Volume Index 22.70 mL/m2 (M/F) 16-34 M-Mode Dimensions RVDd 2.82 cm (0.9-2.6) LA Diam 3.87 cm (1.9-4.0) LVDd 4.07 cm (3.5-5.7) LVDs 2.71 cm (3.5-5.7) IVSd 1.46 cm (0.6-1.1) PWd 1.18 cm (0.6-1.1) EF (Teich) 62.60% FS 33.40% EDV (Teich) 72.90 mL TAPSE 1.79 (<1.7) ESV (Teich) 27.30 mL LV Diastology LAT A' 15.20 cm/s Aortic Valve JOSÉ MIGUEL Index 0.85 cm2/m2 AoV Peak Shailesh. 236.0 (50-130 cm/s) AO Peak GR. 22.30 mmHg AO Mean GR. 12.00 (<5 mmHg) AO VTI 45.6 (18-25 cm) JOSÉ MIGUEL (VTI) 1.75 (2.5-4.5 cm2) Pulmonary Valve PV Peak Velocity 118.0 (50-150 cm/s) Tricuspid Valve TR P. Velocity 246.00 cm/s RAP Estimate 10.00 mmHg RVSP 34.30 mmHg Left Ventricle The left ventricle is normal size. The left ventricular systolic function is normal. The left ventricular ejection fraction is within the normal range. There is increased LV wall thickness. There is normal LV segmental wall motion. Transmitral Doppler flow pattern suggests impaired LV relaxation. LVEF is 60%. Right Ventricle Right ventricle is mildly dilated. The right ventricular systolic function is normal. Atria The left atrium size is normal. The right atrium size is normal. There is no Doppler evidence of interatrial shunt. Aortic Valve The aortic valve is mildly thickened. Mild aortic stenosis. JOSÉ MIGUEL by continuity equation is 1.8 cm2. Peak velocity 2.5 m/s. Mean AV gradient is 13 mmHg. Max AV gradient is 25 mmHg. Mild aortic regurgitation. Mitral Valve The mitral valve is mildly thickened. No evidence of mitral valve stenosis. Mild mitral regurgitation. Tricuspid Valve The tricuspid valve leaflets are thin and pliable. Mild tricuspid regurgitation. RVSP is 16 mmHg + RA pressure. Pulmonic Valve The pulmonary valve is normal in structure. Trace pulmonic regurgitation. Great Vessels The aortic root is normal in size. The ascending aorta is normal in size. The IVC is not well visualized. Pericardium There is no pericardial effusion. Other Information Study Quality: Technically Difficult Conclusion Technically difficult study due to poor accoustic windows. Normal biventricular systolic function. Mild RV dilation. Mild (JOSÉ MIGUEL by continuity equation is 1.8 cm2. Peak velocity 2.5 m/s. Mean AV gradient is 13 mmHg. Max AV gradient is 25 mmHg) Mild AI, mild MR, mild TR. Electronically signed by : Sherice Ramos MD 09/24/2023 19:37:11
--- NOTE | 2023-09-21 09:30 | CA_ITS ---
FINAL REPORT TECHNIQUE: Color Doppler, duplex Doppler and giles scale sonography of the bilateral neck arterial vasculature was performed. Velocities were measured in the carotid arteries. Stenosis evaluation based on the validated velocity criteria. CLINICAL HISTORY: .Right endartectomy, HTN, HLD, DM FINDINGS: The peak systolic velocity of the right common carotid artery is 92 cm/s. The peak systolic velocity of the right internal carotid artery is 132 cm/s and end diastolic velocity 32 cm/s. The ICA/CCA ratio is 1.5. A moderate amount of plaque is present. The right external carotid artery is patent. The right vertebral artery is patent with antegrade flow. The peak systolic velocity of the left common carotid artery is 111 cm/s. The peak systolic velocity of the left internal carotid artery is 93 cm/s and end diastolic velocity 27 cm/s. The ICA/CCA ratio is 0.84. A moderate amount of plaque is present. The left external carotid artery is patent.The left vertebral artery is patent with antegrade flow. IMPRESSION: Less than 50% bilateral carotid stenoses. Bilateral patent vertebral arteries with antegrade flow. If indicated, CTA or MRA could further evaluate. Reviewed, Interpreted and Dictated by Jay Euceda III, MD Transcribed by Jennifer Zaragoza Authenticated and . [facility]
== END 2023-09-21 23:59 | disposition home or self-care (01) ==
LOC: RT 09:27
PROVIDERS: Visit Provider Nurse Practitioner
DX: I51.9 Heart disease, unspecified; I10 Essential (primary) hypertension; R06.00 Dyspnea, unspecified; I20.89 Other forms of angina pectoris; R42 Dizziness and giddiness
CPT/HCPCS: 93306; 93880

== ENCOUNTER 2023-09-24 13:17 | Outpatient (CLI) | payer MEDICARE, SELFPAY ==
--- NOTE | 2023-09-24 | CA_ITS ---
APPROVED REPORT Exam: Pharmacologic Technologist: Mag Geronimo, Ht: 5 ft 9 in Wt: 185 lbs BSA: 2.00 m2 HR: 66 bpm BP: 130/67 mmHg Rhythm: NSR, 1st degree AVB, RBBB Medical History Medications: Amlodipine,,,,, Lisinopril,,,,, Metoprolol,,,,, Asa,,,,, Metformin,,,,, Gabapentin,,,,, Glimepiride,,,,, Farxiga,,,,, TAMSULOSIN,,,,, Cetrizine,,,,, Plavix,,,,, Finasteride,,,,, Cardiac Risk Factors: HTN, Diabetes (non-insulin) Stress Test Details Test: LEXISCAN HR Resting HR: 64 bpm Max Heart Rate (APMHR): 141 bpm Max HR Achieved: 76 bpm Target HR (85% APMHR): 120 bpm % of APMHR: 54 Recovery HR: 66 bpm BP Resting BP: 130/65 mmHg Max BP: 130/67 mmHg Recovery BP: 115.0/58.0 mmHg ECG Resting ECG: NSR, 1st degree AVB, RBBB Stress ECG: No significant ST changes Arrhythmia: PVCs Clinical Exercise duration: 04:00 min Highest Stage Achieved: Stress ECG Conclusion During lexiscan pt experinced very mild SOA and head discomfort. Ectopy: Occasional isolated PVC. ST changes: No significant ST changes. Conclusion: Unremarkable lexiscan stress. Myoview images reported separately. Test Summary REST . . . . . . . Sitting REST 05:23 . . 64 . 130/ 65 . . Stage 1 01:00 . . 71 . . . . Stage 2 01:00 . . 74 . 114/ 54 . . Stage 3 01:00 . . 71 . 112/ 54 . . Stage 4 01:00 . . 69 . 118/ 58 . Stop exercise at 04:00 RECOVERY 01:00 . . 70 . . . . RECOVERY 02:00 . . 69 . . . . RECOVERY 03:00 . . 66 . 115/ 58 . . RECOVERY 03:27 . . 69 . 117/ 58 . . Electronically signed by : Sherice Ramos MD 09/26/2023 01:55:38
--- NOTE | 2023-09-24 13:27 | NM_ITS ---
APPROVED REPORT Exam: Nuclear Stress Test Indication: H/O IA, CABG, HTN, DM, HYPERLIPIDEMIA, FM HX, C.P., SOB, DIZZINESS Patient Location: Outpatient Stress Tech: Mag Geronimo [place] Tech:Tamela Ruvalcaba, ARRT RT (R)(N)(M) Ht: 5 ft 9 in Wt: 187 lbs HR: 66 bpm BP: 130/65 mmHg BSA: 2.01 m2 TID: 1.25 BMI: 27.6 History: H/O IA, CABG, HTN, DM, HYPERLIPIDEMIA, FM HX, C.P., SOB, DIZZINESS Procedure: Patient received 0.4 mg of intravenous Lexiscan, resting heart rate 66 bpm, resting blood pressure 130/65 mmHg, with Lexiscan maximum heart rate achieved was 75 bpm which is % of the maximum predicted heart rate and blood pressure was 114/54 mmHg. With Lexiscan, patient denied any complaint of chest pain. Cardiac Stress and Resting SPECT Images: Cardiac Stress and Resting SPECT images were obtained using technetium 99m Myoview 29.2 mCi stress and 10.05 mCi at rest. Resting and stress imaging in supine and prone positions demonstrate no evidence of fixed or reversible perfusion defects. There is increased transient ischemic dilatation ratio (TID 1.25), suggestive of possible multivessel disease or balanced ischemia. Gated imaging demonstrates normal global and regional LV systolic function. LVEF is calculated at 66%. Conclusion: No evidence of fixed or reversible perfusion defects. Increased transient ischemic dilatation ratio (TID 1.25), suggestive of possible multivessel disease or balanced ischemia. Gated imaging demonstrates normal global and regional LV systolic function. LVEF is calculated at 66%. Electronically signed by : Sherice Ramos MD 09/26/2023 01:57:21
[2023-09-24] MEDS: SODIUM CHLORIDE 0.9% 10ML SYR (RAD ONLY) 10 ML IV ×2 (13:30→14:30)
[2023-09-24] MEDS: REGADENOSON 0.4MG/5ML SYRINGE 0.400000000000000022 MG IV (14:30)
[2023-09-24] MEDS: ISOTOPE MYOVIEW (PER STUDY) 1 DOSE IV (15:49)
== END 2023-09-24 23:59 | disposition home or self-care (01) ==
LOC: RAD 13:21
PROVIDERS: PCP Internal Medicine; Visit Provider Internal Medicine
DX: I51.9 Heart disease, unspecified; I10 Essential (primary) hypertension; R06.00 Dyspnea, unspecified; I20.89 Other forms of angina pectoris
CPT/HCPCS: 78452; 93017; 93018; A9502; J2785

== ENCOUNTER 2023-10-06 08:15 | Day surgery (SDC) | payer MEDICARE, SELFPAY ==
[2023-10-06] VITALS (16 sets, daily range): BP systolic 93–155; BP diastolic 53–86; PULSE 53–80; RESP 15–18; TEMP 36.6; O2SAT 93–98; BMI 27.7
--- NOTE | 2023-10-06 07:13 | IR_ITS ---
APPROVED REPORT Patient Location: Outpatient PROCEDURES Left heart catheterization Left ventriculogram Selective coronary angiogram Selective engagement left internal mammary artery to the LAD Selective engagement of saphenous vein graft to the circumflex artery Bilateral selective renal angiography INDICATION Known coronary artery disease, History of coronary bypass surgery, Abnormal Myoview, Angina pectoris, Chronic renal failure creatinine 1.4 suspect renal artery stenosis, Informed consent was obtained prior to the procedure. COMPLICATIONS NONE Estimated Blood Loss: LESS THAN 10 ML TECHNIQUE One percent lidocaine used to anesthetize the right groin. The right femoral artery was accessed via the Seldinger technique and a 5 [place] sheath was placed in the right femoral artery. A JL 4, JR4 catheter were used to perform left heart catheterization, left ventriculogram selective coronary angiography as well as selective engagement of the 1 vein graft and the left internal mammary artery. The JR4 catheter was used to perform bilateral selective renal angiography at the end of the procedure the patient was transferred to the postop holding area in stable condition for sheath removal. ANGIOGRAPHIC RESULTS The left main artery Patent The left anterior descending artery Occluded after a medium sized first diagonal artery. The first diagonal artery is patent with proximal 30% stenoses The circumflex artery Nondominant proximally occluded The right coronary artery Large dominant with proximal 20 and 30% stenoses with mid vessel 30% stenoses. A large posterior sending artery has a proximal 20% stenosis The [place]ALL ventriculogram reveals Normal 60% The left ventricular end-diastolic pressure 10 mmHg LEAL to LAD is patent however the LAD itself is small Saphenous vein graft to obtuse marginal artery is patent Right renal artery singular normal Left renal artery singular normal IMPRESSION Adequate coronary revascularization as described above Small LEAL graft to a small LAD Normal ejection fraction Normal left ventricular end-diastolic pressure Normal renal arteries PLAN 1. Risk factor modification with aggressive medical management Electronically signed by : Hilton Marquis MD 10/06/2023 12:32:06
[2023-10-06 09:12] LABS: Basophils # 0.1 K/mm3 (0-0.2); Basophils % 1.1 % (0.1-2.0); Eosinophils # 0.1 K/mm3 (0.0-0.4); Eosinophils % 1.1 % (0.1-12.0); Hematocrit 46.6 % (42.0-52.0); Hemoglobin 14.6 g/dL (14.1-18.0); Lymphocytes # 0.8 K/mm3 (0.7-4.5); Lymphocytes % 13.9 % (10-50); Mean Corpuscular HGB Conc 31.4 g/dL (31.8-35.4); Mean Corpuscular Hemoglobin 30.4 pg (27.0-31.2); Mean Corpuscular Volume 96.9 fl (80-94); Mean Platelet Volume 8.7 fl (7.4-10.4); Monocytes # 0.8 K/mm3 (0.1-1.0); Monocytes % 13.7 % (1.7-9.3); Neutrophils % 70.3 % (37.0-80.0); Platelet Count 140 K/mm3 (142-424); Red Blood Count 4.81 M/mm3 (4.60-6.20); Red Cell Distribution Width 14.4 % (11.5-17.5); White Blood Count 5.7 K/mm3 (4.8-10.8)
[2023-10-06 09:20] LABS: Blood Urea Nitrogen 19 mg/dl (9-20); Calcium 8.9 mg/dl (8.4-10.2); Carbon Dioxide 26 mmol/L (22.0-30.0); Chloride 103 mmol/L (98-107); Creatinine Clearance Estimated 52 mL/min (50-200); Estimated Glomerular Filt Rate 49 ml/min (>60); GFR (African American) 59 ML/MIN (>60); Glucose 145 mg/dl (74-100); Sodium 138 mmol/L (136-145)
[2023-10-06 09:25] LABS: Potassium 4.1 mmoL/L (3.5-5.1)
[2023-10-06 09:26] LABS: Anion Gap 13.1 mEq/L (5-15)
[2023-10-06] MEDS: CLOPIDOGREL 75MG TAB 75 MG PO (09:34)
[2023-10-06] MEDS: ASPIRIN 81MG CHEWABLE TABLET 81 MG PO (09:34)
[2023-10-06] MEDS: HEPARIN 1,000 UNITS/500ML NS (CATH LAB) 3000 UNIT IV (11:19)
[2023-10-06] MEDS: 0.9 % SODIUM CHLORIDE 500 ML 25 ML IV (11:20)
[2023-10-06] MEDS: LIDOCAINE 1% 10ML MDV 20 ML IJ (11:21)
[2023-10-06] MEDS: diphenhydrAMINE 50MG/ML VIAL 50 MG IV (11:21)
[2023-10-06] MEDS: FENTANYL 100MCG/2ML VIAL 50 MCG IV (11:31)
[2023-10-06] MEDS: MIDAZOLAM HCL 1MG/1ML 5ML VIAL 1 MG IV (11:31)
[2023-10-06] MEDS: IOPAMIDOL-370 (76%);100ML BOTTLE 50 ML IV (13:37)
== END 2023-10-06 14:51 | disposition home or self-care (01) ==
PROVIDERS: PCP Internal Medicine; Visit Provider Internal Medicine
DX: R94.39 Abnormal result of other cardiovascular function study (principal); Z95.1 Presence of aortocoronary bypass graft; I25.118 Atherosclerotic heart disease of native coronary artery with other forms of angina pectoris; Z79.899 Other long term (current) drug therapy; Z79.84 Long term (current) use of oral hypoglycemic drugs; E11.22 Type 2 diabetes mellitus with diabetic chronic kidney disease; Z95.5 Presence of coronary angioplasty implant and graft; N18.9 Chronic kidney disease, unspecified; I65.23 Occlusion and stenosis of bilateral carotid arteries
CPT/HCPCS: 36252; 80048; 85025; 93459; 99152; C1725; C1769; C1894; J1644; Q9967

== ENCOUNTER 2024-01-05 11:26 | Outpatient (CLI) | payer MEDICARE, SELFPAY ==
[2024-01-05 19:13] LABS: Basophils # 0.1 K/mm3 (0-0.2); Eosinophils # 0.2 K/mm3 (0.0-0.4); Eosinophils % 2.5 % (0.1-12.0); Hematocrit 47.8 % (42.0-52.0); Hemoglobin 14.2 g/dL (14.1-18.0); Lymphocytes # 0.9 K/mm3 (0.7-4.5); Lymphocytes % 12.5 % (10-50); Mean Corpuscular HGB Conc 29.8 g/dL (31.8-35.4); Mean Corpuscular Hemoglobin 30.3 pg (27.0-31.2); Mean Corpuscular Volume 101.6 fl (80-94); Mean Platelet Volume 9.3 fl (7.4-10.4); Monocytes # 0.8 K/mm3 (0.1-1.0); Neutrophils # 5.5 K/mm3 (1.8-7.8); Neutrophils % 73.9 % (37.0-80.0); Platelet Count 188 K/mm3 (142-424); White Blood Count 7.5 K/mm3 (4.8-10.8)
[2024-01-05 19:35] LABS: Microalbumin < 6.000 mg/L (0-16.7)
[2024-01-05 19:36] LABS: Alanine Aminotransferase 16 U/L (12-78); Albumin Level 3.6 g/dl (3.5-5.0); Albumin/Globulin Ratio 1.3 (1.1-1.8); Alkaline Phosphatase 147 U/L (38-126); Anion Gap 10.2 mEq/L (5-15); Aspartate Amino Transferase 26 U/L (17-59); Bilirubin,Direct 0.1 mg/dl (0.0-0.4); Bilirubin,Indirect 0.4 mg/dL (0.0-0.9); Bilirubin,Total 0.5 mg/dl (0.2-1.3); Bilirubin,Unconjugated 0.5 mg/dL (0.0-1.1); Blood Urea Nitrogen 15 mg/dl (9-20); Calcium 8.9 mg/dl (8.4-10.2); Carbon Dioxide 24 mmol/L (22.0-30.0); Chloride 108 mmol/L (98-107); Creatinine,Urine Random 53 mg/dL (Not Estab.); Estimated Glomerular Filt Rate 58 ml/min (>60); GFR (African American) 71 ML/MIN (>60); Globulin 2.8 g/dL (1.3-3.2); Glucose 110 mg/dl (74-100); Magnesium 2.2 mg/dl (1.6-2.3); Microalbumin/Creatinine Ratio 11.3; Potassium 4.2 mmoL/L (3.5-5.1); Sodium 138 mmol/L (136-145); Total Protein,Serum 6.4 g/dl (6.3-8.2)
[2024-01-05 19:44] LABS: Free Thyroxine Index 2.7 ug/dL (5.93-13.13); T4 (Thyroxine) 8.7 ug/dl (5.53-11.0); Triiodothryronine (T3) Uptake 31 % (23.5-40.5)
[2024-01-05 19:54] LABS: Hemoglobin A1C 7.6 % (4.0-6.0)
[2024-01-05 19:57] LABS: Thyroid Stimulating Hormone 2.81 uIU/mL (0.465-4.68)
== END 2024-01-05 23:59 | disposition home or self-care (01) ==
LOC: LAB.DROPOF 01-06 11:27
PROVIDERS: PCP Family Medicine; Visit Provider Family Medicine
DX: Z00.00 Encounter for general adult medical examination without abnormal findings (principal); E11.9 Type 2 diabetes mellitus without complications; M19.071 Primary osteoarthritis, right ankle and foot; M19.072 Primary osteoarthritis, left ankle and foot; I25.10 Atherosclerotic heart disease of native coronary artery without angina pectoris; E78.00 Pure hypercholesterolemia, unspecified; I65.29 Occlusion and stenosis of unspecified carotid artery; I10 Essential (primary) hypertension; R42 Dizziness and giddiness; Z95.1 Presence of aortocoronary bypass graft
CPT/HCPCS: 80050; 80053; 80076; 82043; 82570; 83036; 83735; 84436; 84443; 84479; 85025

== ENCOUNTER 2024-07-07 09:09 | Outpatient (CLI) | payer MEDICARE, SELFPAY ==
[2024-07-07 18:19] LABS: Creatinine,Urine Random 71 mg/dL (Not Estab.)
[2024-07-07 18:35] LABS: Hemoglobin A1C 8.2 % (4.0-6.0)
[2024-07-07 18:45] LABS: Albumin Level 3.9 g/dl (3.5-5.0); Chloride 102 mmol/L (98-107); Potassium 3.7 mmoL/L (3.5-5.1); Sodium 138 mmol/L (136-145)
[2024-07-07 18:48] LABS: Alanine Aminotransferase 31 U/L (12-78); Albumin/Globulin Ratio 1.7 (1.1-1.8); Alkaline Phosphatase 203 U/L (38-126); Anion Gap 12.7 mEq/L (5-15); Aspartate Amino Transferase 36 U/L (17-59); Bilirubin,Total 0.7 mg/dl (0.2-1.3); Blood Urea Nitrogen 26 mg/dl (9-20); Carbon Dioxide 27 mmol/L (22.0-30.0); Estimated Glomerular Filt Rate 53 ml/min (>60); GFR (African American) 64 ML/MIN (>60); Globulin 2.3 g/dL (1.3-3.2); Total Protein,Serum 6.2 g/dl (6.3-8.2)
[2024-07-07 18:49] LABS: Calcium 9.2 mg/dl (8.4-10.2); Glucose 142 mg/dl (74-100)
== END 2024-07-07 23:59 | disposition home or self-care (01) ==
LOC: LAB.DROPOF 07-08 11:42
PROVIDERS: PCP Family Medicine; Visit Provider Family Medicine
DX: E11.41 Type 2 diabetes mellitus with diabetic mononeuropathy (principal); Z79.84 Long term (current) use of oral hypoglycemic drugs; I10 Essential (primary) hypertension; I25.10 Atherosclerotic heart disease of native coronary artery without angina pectoris; G47.33 Obstructive sleep apnea (adult) (pediatric); E78.00 Pure hypercholesterolemia, unspecified
CPT/HCPCS: 80053; 82043; 82570; 83036

== ENCOUNTER 2024-10-04 11:59 | Outpatient (CLI) | payer MEDICARE, SELFPAY ==
[2024-10-04 12:04] LABS: MANUAL DIFFERENTIAL MANUAL DIFFERENTIAL (MANUAL DIFF)
--- NOTE | 2024-10-04 12:04 | US_ITS ---
FINAL REPORT CLINICAL HISTORY: DM, [place], HTN, CAD, Left leg pain COMPARISON: None FINDINGS: ANKLE-BRACHIAL PRESSURE INDICES Pressure indices are as follows: RIGHT LOWER EXTREMITY: Right thigh: 179 Right calf: 254 Right ankle (PT): Greater than 254 Right ankle (DP): Greater than 254 Digit: 110 Ankle-brachial pressure index: Not calculable Comments: Probably falsely elevated throughout the right lower extremity LEFT LOWER EXTREMITY: Left thigh: 208 Left calf: 188 Left ankle (PT): 152 Left ankle (DP): 164 Digit: 100 Ankle-brachial pressure index: 1.1 Comments: Normal CONCLUSION: Normal CHRISTINA left lower extremity. Probably falsely elevated ABIs throughout the right lower extremity. Would suggest CTA runoff for further evaluation if clinically indicated. Reviewed, Interpreted and Dictated by Rachelle Kasper MD Transcribed by Rissa Roca Authenticated and [facility]
[2024-10-04 12:27] LABS: Basophils # 0.1 K/mm3 (0-0.2); Basophils % 0.7 % (0.1-2.0); Eosinophils # 0.2 Kmm3 (0.0-0.4); Eosinophils % 2.8 % (0.1-12.0); Hematocrit 45.8 % (42.0-52.0); Lymphocytes # 0.9 K/mm3 (0.7-4.5); Lymphocytes % 14.1 % (10-50); Mean Corpuscular HGB Conc 32.8 g/dL (31.8-35.4); Mean Corpuscular Hemoglobin 30.7 pg (27.0-31.2); Mean Corpuscular Volume 93.9 fl (80-94); Mean Platelet Volume 10.2 fl (7.4-10.4); Monocytes % 14.2 % (1.7-9.3); Neutrophils # 4.5 K/mm3 (1.8-7.8); Neutrophils % 67.8 % (37.0-80.0); Platelet Count 172 K/mm3 (142-424); Red Blood Count 4.88 M/mm3 (4.60-6.20); Red Cell Distribution Width 14.1 % (11.5-17.5); White Blood Count 6.7 K/mm3 (4.8-10.8)
[2024-10-04 12:44] LABS: Chloride 104 mmol/L (98-107); Sodium 135 mmol/L (136-145)
[2024-10-04 12:47] LABS: Alanine Aminotransferase 24 U/L (12-78); Albumin/Globulin Ratio 1.4 (1.1-1.8); Alkaline Phosphatase 153 U/L (38-126); Aspartate Amino Transferase 54 U/L (17-59); Bilirubin,Total 0.7 mg/dl (0.2-1.3); Blood Urea Nitrogen 22 mg/dl (9-20); Calcium 9.3 mg/dl (8.4-10.2); Carbon Dioxide 26 mmol/L (22.0-30.0); Estimated Glomerular Filt Rate 53 ml/min (>60); GFR (African American) 64 ML/MIN (>60); Globulin 2.8 g/dL (1.3-3.2); Glucose 260 mg/dl (74-100); Total Protein,Serum 6.8 g/dl (6.3-8.2)
--- NOTE | 2024-10-04 14:15 | MR_ITS ---
FINAL REPORT TECHNIQUE: Multiplanar MR, without and with gadolinium enhancement CLINICAL HISTORY: dizziness x couple years 16 ml prohance FINDINGS: Diffusion sequences show no signal abnormality to indicate acute infarct. There is mild generalized atrophy with mild chronic microvascular changes. No mass, hemorrhage or edema is seen. Ventricles are normal. Major vascular flow voids are intact. Following contrast administration, no mass or abnormal enhancement is seen. IMPRESSION: No acute intracranial abnormality. No mass or abnormal contrast-enhancement. Mild atrophy with chronic microvascular change. Reviewed, Interpreted and Dictated by Rachelle Kasper MD Transcribed by Jennifer Zaragoza Authenticated and [facility]
[2024-10-04] MEDS: SODIUM CHLORIDE 0.9% 10ML SYR (RAD ONLY) 10 ML IV (14:24)
[2024-10-04] MEDS: GADOTERIDOL INJ 20ML SYRINGE 16 ML IV (14:24)
[2024-10-04 14:30] LABS: Eosinophils % 3 % (0-3); Lymphocytes % 22 % (10-50); Monocytes % 9 % (2-9); Neutrophils % 65 % (42-76); Platelet Estimate Normal; RBC Morphology Normal; Total Cells Counted 100
== END 2024-10-04 23:59 | disposition home or self-care (01) ==
PROVIDERS: PCP Family Medicine; Visit Provider Family Medicine
DX: Z00.00 Encounter for general adult medical examination without abnormal findings (principal); G31.9 Degenerative disease of nervous system, unspecified; M79.605 Pain in left leg; I73.9 Peripheral vascular disease, unspecified; E11.9 Type 2 diabetes mellitus without complications; I21.9 Acute myocardial infarction, unspecified; I10 Essential (primary) hypertension; R90.89 Other abnormal findings on diagnostic imaging of central nervous system; R09.89 Other specified symptoms and signs involving the circulatory and respiratory systems
CPT/HCPCS: 36415; 70553; 80053; 85007; 85014; 85018; 85048; 85049; 93923; A9576

== ENCOUNTER 2024-10-12 16:29 | Outpatient (CLI) | payer MEDICARE, SELFPAY ==
--- NOTE | 2024-10-12 16:45 | MR_ITS ---
PROCEDURE INFORMATION: Exam: MRA Head Without Contrast; Arteriography Exam date and time: 10/12/2024 4:34 PM Age: 79 years old Clinical indication: Pain; Headache; Additional info: Dizziness TECHNIQUE: Imaging protocol: Magnetic resonance angiography head without contrast. [id number] (TOF) technique was utilized for this exam. Exam focused on the arteries. COMPARISON: MR HEAD/BRAIN WO/W CON 10/04/2024 1:42 PM FINDINGS: ANTERIOR CIRCULATION: Right internal carotid artery: Intracranial segment is patent with no significant stenosis. No aneurysm. Right middle cerebral artery: No occlusion or significant stenosis. No aneurysm. Right anterior cerebral artery: No occlusion or significant stenosis. No aneurysm. Left internal carotid artery: Intracranial segment is patent with no significant stenosis. No aneurysm. Left middle cerebral artery: No occlusion or significant stenosis. No aneurysm. Left anterior cerebral artery: No occlusion or significant stenosis. No aneurysm. POSTERIOR CIRCULATION: Right vertebral artery: No occlusion or significant stenosis. No aneurysm. Left vertebral artery: No occlusion or significant stenosis. No aneurysm. Basilar artery: No occlusion or significant stenosis. No aneurysm. Right posterior cerebral artery: No occlusion or significant stenosis. No aneurysm. Right posterior communicating artery is noted. Left posterior cerebral artery: No occlusion or significant stenosis. No aneurysm. IMPRESSION: No stenosis or occlusion.
== END 2024-10-12 23:59 | disposition home or self-care (01) ==
LOC: RAD 16:30
PROVIDERS: Visit Provider Family Medicine
DX: R26.81 Unsteadiness on feet; R42 Dizziness and giddiness; R09.89 Other specified symptoms and signs involving the circulatory and respiratory systems; R51.9 Headache, unspecified
CPT/HCPCS: 70544

== ENCOUNTER 2024-10-17 09:40 | Outpatient (CLI) | payer MEDICARE, SELFPAY ==
[2024-10-17 11:11] LABS: Alanine Aminotransferase 19 U/L (12-78); Albumin Level 3.8 g/dl (3.5-5.0); Alkaline Phosphatase 125 U/L (38-126); Aspartate Amino Transferase 40 U/L (17-59); Bilirubin,Direct 0.3 mg/dl (0.0-0.4); Bilirubin,Indirect 0.6 mg/dL (0.0-0.9); Bilirubin,Total 0.9 mg/dl (0.2-1.3); Bilirubin,Unconjugated 0.6 mg/dL (0.0-1.1); Chol/HDL Ratio 3.4 (1-3.5); Cholesterol 168 mg/dl (140-200); HDL Cholesterol 50 mg/dl (40-60); Total Protein,Serum 6.3 g/dl (6.3-8.2); Triglycerides 187 mg/dl (30-150); VLDL Cholesterol 37 mg/dL (0-40)
[2024-10-17 11:22] LABS: Direct LDL Cholesterol 80.65 mg/dL (100-129)
== END 2024-10-17 23:59 | disposition home or self-care (01) ==
LOC: LAB 09:40
PROVIDERS: PCP Family Medicine; Visit Provider Nurse Practitioner Family
DX: I25.10 Atherosclerotic heart disease of native coronary artery without angina pectoris (principal); I10 Essential (primary) hypertension
CPT/HCPCS: 36415; 80061; 80076

== ENCOUNTER 2025-04-11 10:51 | Outpatient (CLI) | payer MEDICARE, SELFPAY ==
[2025-04-11 18:25] LABS: Alanine Aminotransferase 17 U/L (12-78); Albumin Level 3.9 g/dl (3.5-5.0); Albumin/Globulin Ratio 1.6 (1.1-1.8); Alkaline Phosphatase 147 U/L (38-126); Anion Gap 8.0 mEq/L (5-15); Aspartate Amino Transferase 28 U/L (17-59); Bilirubin,Total 0.7 mg/dl (0.2-1.3); Blood Urea Nitrogen 18 mg/dl (9-20); Calcium 9.1 mg/dl (8.4-10.2); Carbon Dioxide 28 mmol/L (22.0-30.0); Chloride 102 mmol/L (98-107); Creatinine,Serum 1.20 mg/dl (0.66-1.25); Estimated Glomerular Filt Rate 58 ml/min (>60); GFR (African American) 70 ML/MIN (>60); Globulin 2.5 g/dL (1.3-3.2); Glucose 149 mg/dl (74-100); Potassium 4.0 mmoL/L (3.5-5.1); Sodium 134 mmol/L (136-145); Total Protein,Serum 6.4 g/dl (6.3-8.2)
[2025-04-11 18:28] LABS: Hemoglobin A1C 8.8 % (4.0-6.0)
[2025-04-11 18:53] LABS: Thyroid Stimulating Hormone 2.33 uIU/mL (0.465-4.68)
--- OUTSIDE RECORDS SUMMARY | 2025-04-16 11:43 | XMS_ITS | Clinical Summary ---
Author Organization [facility] Address [address] [place] [address] Care Team Providers Care Child Guidance Counselor Name Role Phone Unavailable Primary Care Provider [...]
--- OUTSIDE RECORDS SUMMARY | 2025-04-16 11:43 | XMS_ITS | Clinical Summary ---
Author Organization Healthcare Address [address] [place] [address] Care Team Providers Care Shop Manager Name Role Phone Saul Schulz MD Primary Care Provider + [phone] Family History Medical History Relation Name Comments [...] of Treatment Not on file Care Teams Shop Manager Relationship Specialty Start Date End Date Saul Schulz MD [address] [place] [address] PCP - General 09/27/20
== END 2025-04-11 23:59 ==
LOC: LAB.DROPOF 04-16 10:52
PROVIDERS: PCP Family Medicine; Visit Provider Family Medicine
DX: E11.8 Type 2 diabetes mellitus with unspecified complications (principal); Z12.5 Encounter for screening for malignant neoplasm of prostate
CPT/HCPCS: 80053; 83036; 84443; G0103

== ENCOUNTER 2025-04-11 15:06 | Observation (INO) | payer MEDICARE, SELFPAY ==
[2025-04-11] VITALS (24 sets, daily range): BP systolic 113–164; BP diastolic 54–87; PULSE 60–116; RESP 12–17; TEMP 36.3–36.6; O2SAT 90–99; BMI 26.9
--- NOTE | 2025-04-11 15:08 | IR_ITS ---
APPROVED REPORT PROCEDURES 1. Pocket formation for Permanent Pacemaker Placement. 2. Placement of an atrial sensing and pacing coil into the right atrial appendage. 3. Placement of a ventricular sensing and pacing coil in the right ventricular apex. 4. Permanent Pacemaker Placement. INDICATION 3rd degree heart block Informed consent was obtained prior to the procedure. COMPLICATIONS NONE Estimated Blood Loss: LESS THAN 10 ML TECHNIQUE 1% Lidocaine with epinephrine used to anesthetized the left anterior aspect of the chest. Scalpel was used to make the initial cutaneous incision while electrocautery was used to dissect down tinto the fascia. The fascia was lifted off the pectoralis muscle and digitally manipulated creating a pocket for the pacemaker. The patient was then placed in Trendelenburg position and the subclavian vein was accessed twice via the Selinger technique, there are two wires in the vein. A 6 Chinese sheath was placed under fluoroscopic guidance into the subclavian vein over one of the wires while keeping the other wire in place within the subclavian vein. The dilator was removed from the sheath. Using fluoroscopic guidance, the ventricular lead was placed into the right ventricular apex, screwed and secured into place. Electronic interrogation proved acceptable thresholds and voltage within the lead. Using 3-0 silk, the ventricular lead was then secured into place. Lead was secured to the facia using the 3-0 silk. Following this, the sheath was pealed away. An additional 6 Chinese fresh sheath and dilator was placed over the existing wire. Using fluoroscopic guidance, the atrial lead was the placed into the right atrial appendage and screwed and secured in place. Electrical interrogation demonstrated acceptable thresholds and voltage number. The atrial lead was then secured into place using 3-0 silk. 1 gram of Ancef was used to flush the pocket. Following the pacemaker generator being secured to the fascia and in place, Monocryl was used to close the subcutaneous layers while hernando were used to close the cutaneous layer. A pressure dressing was placed and the patient was transferred to the postop holding area in stable condition for postoperative care. INTERROGATION Generator Model number: [id number] Generator Serial number: [id number] Atrial lead model number: [id number] Atrial lead serial number: [id number] P-wave: 1.8-2.5mV Impedance: 460ohms Threshold: 1.0v@0.4ms Right Ventricular lead model number: [id number] Right Ventricular lead serial number: [id number] R-wave: 8-9mV Impedance: 620ohms Threshold: 1.0@0.4ms Pacing Parameters: Mode: DDDR Base/Max Track:60 ppm / 130 ppm No diaphragmatic stimulation at 10 volts. IMPRESSION 1. Successful pocket formation for Permanent Pacemaker Placement. 2. Successful placement of an atrial sensing and pacing coil into the right atrial appendage. 3. Successful placement of a ventricular sensing and pacing coil in the right ventricular apex. 4. Successful permanent Pacemaker Placement. PLAN 1. Postop wound care. Electronically signed by : Hilton Marquis MD 04/11/2025 17:38:42
--- OUTSIDE RECORDS SUMMARY | 2025-04-11 15:10 | XMS_ITS | Clinical Summary ---
Author Organization Healthcare Address [address] [place] [address] Care Team Providers Care Major Account Representative Name Role Phone Saul Schulz MD Primary Care Provider [phone] Family History Medical History Relation Name Comments Heart attack Father Other cancer Mother Relation Name Status Comments Father Mother Social History Tobacco Use Types Packs/Day Years Used Date Smoking Tobacco: Never Sex and Gender Information Value Date Recorded Sex Assigned at Not on file Legal Sex Male 7:46 PM EDT Gender Identity Not on file Sexual Orientation Not on file Last Filed Vital Signs Vital Sign Reading Time Taken Comments Blood Pressure - - Pulse - - Temperature - - Respiratory Rate - - Oxygen Saturation - - Inhaled Oxygen Concentration - - Weight 86.2 kg (189 lb 15.9 oz) 12/05/2015 2:47 PM EDT Height 175.3 cm (5' 9 ) 12/05/2015 2:47 PM EDT Body Mass Index 28.06 12/05/2015 2:47 PM EDT Plan of Treatment Not on file Care Teams Major Account Representative Relationship Specialty Start Date End Date Saul Schulz MD [address] [place] [address] PCP - General 09/27/20
--- OUTSIDE RECORDS SUMMARY | 2025-04-11 15:10 | XMS_ITS | Clinical Summary ---
Author Organization [facility] Address [address] [place] [address] Care Team Providers Care Global Sourcing Manager Name Role Phone Unavailable Primary Care Provider Unavailabl e Social History Tobacco Use Types Packs/Day Years Used Date Smoking Tobacco: Never Assessed Abuse Screen Answer Date Recorded Unsafe at Home or Work/School Not on file Feels Threatened by Someone? Not on file 02/2023 Does Anyone Keep You from Co ntacting Others or Doint Things Outside the Home? Not on file 02/23/2023 Physical Sign of Abuse Present Not on file 1 Housing Stability Answer Date Recorded Current Living Arrangements Not on file 02/14 Potentially Unsafe Housing Conditions Not on arin e 02/23/2023 Family and Community Support Answer Alonzo e Recorded Help with Day-to-Day Activities Not on file 02/23/2023 Lonely or Isolated Not on file 02/23/2023 Employment Answer Date Recorded Do you want help finding or keeping work or a janeth b? Not on file 02/23/2023 Disabilities Answer Date Recorded Concentrating, Remembering, or Making Decisions Difficulty Not on file 02/23/2023 Doing Errands Independently Difficulty Not on fi le 02/23/2023 Education Answer Date Recorded Help with school or training? Not on file Preferred Language Not on file 02/23/2023 Sex and Gender Information Value Date Recorded Sex Assigned at Not on file Legal Sex Male 1:43 PM EDT Gender Identity Not on file Sexual Orientation Not on file Last Filed Vital Signs Vital Sign Reading Time Taken Comments Blood Pressure 129/78 01/22/2014 1:12 PM EDT Pulse 62 01/22/2014 1:08 PM EDT Temperature 36.4 C (97.5 F) 01/22/2014 1:08 PM EDT Respiratory Rate - - Oxygen Saturation 97% 01/22/2014 1:08 PM EDT Inhaled Oxygen Concentration - - Weight 88.5 kg (195 lb) 01/22/2014 1:08 PM EDT Height 175.3 cm (5' 9 ) 01/22/2014 1:08 PM EDT Body Mass Index 28.8 01/22/2014 1:08 PM EDT Plan of Treatment Health Maintenance Due Date Last Done Comments ANNUAL PHYSICAL 1944 TDAP/TD VACCINES (1 - Tdap) 1963 Pneumococcal Vaccine 50+ (1 of 1 - PCV) 1994 ZOSTER VACCINE (1 of 2) 1994 RSV Vaccine - Adults (1 - 1-dose 75+ series) 0 INFLUENZA VACCINE 12/15/2024 COVID-19 Vaccine (1 - 2023- season) 2025
--- NOTE | 2025-04-11 15:14 | CA_ITS ---
APPROVED REPORT EXAM: Limited 2D Echocardiogram Special Needs Nanny: Elizabeth Cottrell CRT Ht: 5 ft 9 in Wt: 182lbs BSA: 1.99 BP: 141/59 mmHg Indications: EF check 3rd degree block, pre-pacer M-Mode Dimensions RVDd 3.19 cm (0.9-2.6) LVDd 4.33 cm (3.5-5.7) LVDs 2.81 cm (3.5-5.7) IVSd 1.37 cm (0.6-1.1) PWd 0.68 cm (0.6-1.1) EF (Teich) 64.70% FS 35.10% EDV (Teich) 84.40 mL ESV (Teich) 29.80 mL Other Information Study Quality: Technically Difficult Conclusion This is a limited TTE to evaluate for LV systolic function. Limited windows are obtained. The LV is normal in size. There is increased LV wall thickness. There is normal global LV systolic function. LVEF is 60%. Electronically signed by : hSerice Ramos MD 04/11/2025 18:16:30
--- NOTE | 2025-04-11 15:17 | EXP.HP ---
History of Present Illness *Admission Date: 04/11/25 *Reason for visit:: syncope *History of present illness: Mr. Depmsey is an 79-year-old male who was seen by his PCP today for routine follow-up. At that visit he reported that he had a syncopal event 3 weeks ago where he fell and busted his face. On evaluation, EKG was obtained. EKG personally reviewed and is scanned into patient's chart. It was obtained at 1150 this morning. It showed a ventricular rate of 58 beats a minute however rhythm strip appears to show complete heart block with an dissociation of P waves and ventricular conduction. Occasional ventricular ectopy. Given his complete heart block (third degree heart block), patient was instructed to report to cardiology office for urgent evaluation. Cardiology requested admission for pacemaker placement and monitoring overnight. I agreed to admit. Seen after his procedure. Tolerated pacemaker placement well without any issue. Heart rate approximately 112 at time of evaluation. Patient is still somnolent from sedation. History obtained from daughter. She reports that he has been having dizzy spells and weakness for greater than 6 months. Has a history of CABG in 2007. Heart cath about a year ago with no stents placed as his CAD was stable. Patient is otherwise normally active and independent. Stable on room air. Denied chest pain. [facility] Disclaimer: The information contained in this section may have been updated after the patient was seen, as this information can be updated by other users. Medical History Acute ear infection Sinusitis Ear infection Dizziness Neuritis Exostosis Onychodystrophy Acute kidney injury (nontraumatic) Grief reaction Typical angina Abscess Cellulitis and abscess of buttock Abscess Abnormal cardiovascular stress test Orthostatic dizziness Osteoarthritis CAD (coronary artery disease) MEHUL (obstructive sleep apnea) Hypercholesteremia Carotid artery stenosis Essential hypertension Coronary arteriosclerosis DDD (degenerative disc disease) Carotid bruit Diabetic foot Dyspnea Surgical History History of coronary artery bypass graft Stented coronary artery Family History Other No significant family history Social History Smoking Status: Never smoker alcohol intake: never substance use type: denies use current occupational status: retired Travel in the last 8 weeks?: None household members: significant other housing: house current occupational exposures/hazards: No caffeine: Yes Other Medical History Have you received the Flu Vaccine for this season: No Have you received the Pneumonia Vaccine: No Review of Systems Review of Systems Review of systems (narrative): 14 point review of systems performed, pertinent positives and negatives as per HPI; reviewed per daughter. Unable to obtain from patient. Meds Home Medications and Allergies Home Medications ?Medication ?Instructions ?Recorded ?Confirmed ?Type aspirin 81 mg tablet 81 mg PO DAILY 09/07/23 04/11/25 History blood sugar diagnostic (Contour #70 ea 05/23/24 04/11/25 Rx Next Test Strips) metformin 1,000 mg tablet 1,000 mg PO DAILY 07/07/24 04/11/25 History pitavastatin calcium 4 mg tablet 4 mg PO DAILY #90 tabs 10/05/24 04/11/25 Rx (Livalo) hydrochlorothiazide 12.5 mg capsule 12.5 mg PO DAILY #90 caps 10/24/24 04/11/25 Rx Held on 04/11/25. Instructions: Home Medication placed on hold at Doctor's office fluticasone propionate 50 2 spray intranasal DAILY #16 grams 12/21/24 04/11/25 Rx mcg/actuation nasal spray,suspension (Flonase Allergy Relief) blood sugar diagnostic (Accu-Chek #100 ea 03/22/25 04/11/25 Rx Hina Plus test strips) blood-glucose meter (Accu-Chek #1 ea 03/22/25 04/11/25 Rx Guide Glucose Meter) lancets (Accu-Chek Softclix #100 ea 03/22/25 04/11/25 Rx Lancets) amlodipine 5 mg tablet 2.5 mg PO DAILY 04/11/25 04/11/25 History cetirizine 10 mg tablet 10 mg PO DAILY 04/11/25 04/11/25 History clopidogrel 75 mg tablet 75 mg PO DAILY 04/11/25 04/11/25 History dapagliflozin propanediol 10 mg 10 mg PO DAILY 04/11/25 04/11/25 History tablet (Farxiga) finasteride 5 mg tablet 5 mg PO DAILY 04/11/25 04/11/25 History gabapentin 800 mg tablet 800 mg PO BID #90 tabs 04/11/25 04/11/25 Rx glimepiride 2 mg tablet 2 mg PO BID 04/11/25 04/11/25 History metoprolol succinate 25 mg 25 mg PO DAILY 04/11/25 04/11/25 History tablet,extended release 24 hr ropinirole 1 mg tablet 1 mg PO HS #30 tabs 04/11/25 04/11/25 Rx sitagliptin phosphate 100 mg 100 mg PO DAILY 04/11/25 04/11/25 History tablet (Januvia) tamsulosin 0.4 mg capsule 0.4 mg PO DAILY 04/11/25 04/11/25 History New Prescriptions to Start Prescriptions: Allergies Allergy/AdvReac Type Severity Reaction Status Date / Time No Known Drug Allergies Allergy Unknown Other Verified 04/11/25 14:46 (NKDA) Exam Constitutional Constitutional: no acute distress, average body habitus, cooperative and somnolent *Routine HEENT Exam Head: Present normocephalic Eye: Present EOMI and PERRL ENT: Present mucous membranes moist *Routine Neck Exam Neck: Present supple; Absent lymphadenopathy Routine Chest/Breast/Axilla Exam Chest wall: Present pacemaker (Left upper chest, bandage clean dry and intact. No significant hematoma or bruising at this time) *Routine Respiratory Exam Respiratory: Present CTA bilaterally; Absent rhonchi, wheezes or crackles *Routine Cardiovascular Exam Cardiovascular: Present tachycardia *Routine Abdominal Exam Abdominal: Present soft and normoactive bowel sounds; Absent tenderness *Routine Rectal Exam Rectal:: deferred *Routine Genitalia Exam Genitalia:: deferred *Routine Extremities Exam Extremities: Absent cyanosis, clubbing or edema *Routine Skin Exam Skin: Present warm; Absent rash *Routine Neurological Exam Neurological: Present alert, moving all extremities and vision grossly intact Assessment and Plan *Assessment and plan (1) Complete heart block: Status: Acute Category: Medical Code(s): I44.2 - Atrioventricular block, complete (2) Syncope: Status: Acute Category: Medical Code(s): R55 - Syncope and collapse (3) Abnormal EKG: Status: Acute Category: Medical Code(s): R94.31 - Abnormal electrocardiogram [ECG] [EKG] (4) PAD (peripheral artery disease): Status: Acute Category: Medical Code(s): I73.9 - Peripheral vascular disease, unspecified (5) CAD (coronary artery disease): Status: Acute Qualifiers: Associated angina: without angina Coronary Disease-Associated Artery/Lesion type: menominee artery [place] vs. transplanted heart: menominee heart Qualified Code(s): I25.10 - Atherosclerotic heart disease of [place]ominee coronary artery without angina pectoris Category: Medical Code(s): I25.10 - Atherosclerotic heart disease of [place]ominee coronary artery without angina pectoris (6) MEHUL (obstructive sleep apnea): Status: Chronic Category: Medical Code(s): G47.33 - Obstructive sleep apnea (adult) (pediatric) (7) BPH associated with nocturia: Status: Acute Category: Medical Code(s): N40.1 - Benign prostatic hyperplasia with lower urinary tract symptoms; R35.1 - Nocturia (8) Diabetic neuropathy: Status: Acute Category: Medical Code(s): E11.40 - Type 2 diabetes mellitus with diabetic neuropathy, unspecified (9) Diabetes: Status: Chronic Qualifiers: Diabetes mellitus complication status: with unspecified complications Diabetes mellitus ferry terminal supervisor insulin use: without usp use Diabetes mellitus type: type 2 Qualified Code(s): E11.8 - Type 2 diabetes mellitus with unspecified complications Category: Medical Code(s): E11.9 - Type 2 diabetes mellitus without complications Plan 79-year-old male who presented for routine visit with his PCP. Had been having dizzy spells with syncopal event 3 weeks ago. EKG obtained showing third-degree heart block. Referred to cardiology for urgent evaluation. Discussed case with geospatial technologist, request admission for monitoring overnight after placement of pacemaker due to heart block with symptoms including syncope 3 weeks ago. I agreed to admit for further care. Patient tolerated procedure well. Monitoring on telemetry. Problems addressed as follows: Third-degree heart block Syncope Abnormal EKG History of CABG x 2 CAD/PAD -EKG per my review with third-degree heart block. See scanned EKG in chart -Cardiology consulted to assist with care, appreciate their intervention today and placement of pacemaker. -Will resume patient's home metoprolol, increase to 50 mg metoprolol succinate tonight. Administer metoprolol tartrate 5 mg IV once for heart rate greater than 110 -Mildly hypertensive. Goal blood pressure less than 140/90. Resume amlodipine 5 mg daily, aspirin 81 mg daily, Plavix 75 mg daily, Farxiga 10 mg daily, Livalo 4 mg daily -Monitor on telemetry overnight. If does well overnight, anticipate discharge tomorrow with follow-up with cardiology in the next week or 2 - TSH 1.88; repeat CBC, CMP, magnesium ordered for the morning - Initial labs with white count of 7.2, hemoglobin 14, kidney function at baseline of BUN 19, creatinine 1.3. Glucose elevated at 202. BPH: Continue tamsulosin 0.4 mg daily and finasteride 5 mg daily Diabetes: A1c 8.9, goal less than 8 given comorbidities and age. Will initiate on sliding scale insulin with fingersticks ACHS. Plan to resume home regimen at discharge - Continue Farxiga and Januvia Neuropathy: Continue gabapentin 800 mg twice daily Restless leg: Continue ropinirole 1 mg nightly Full code Cardiac diet Heparinized in Operations Controller
--- NOTE | 2025-04-11 15:17 | HMH.PHAINT1 ---
Pharmacy Intervention Comments: MEDICATION RECONCILIATION COMPLETED ON PATIENT USING EXTERNAL FILL HISTORY FROM PHARMACY AND LISTS FROM CARDIOLOGY/PCP OFFICES. -DARRION BYRDD
--- NOTE | 2025-04-11 16:00 | PC.NURSE ---
OVEN DUMPER TEAM TOOK PATIENT OFF THE FLOOR BEFORE AN EKG COULD BE OBTAINED.
[2025-04-11 16:09] LABS: Hematocrit 42.2 % (42.0-52.0); Hemoglobin 14.0 g/dL (14.1-18.0); Immature Granulocytes % 0.6 %; Mean Corpuscular HGB Conc 33.2 g/dL (31.8-35.4); Mean Corpuscular Hemoglobin 31.1 pg (27.0-31.2); Mean Corpuscular Volume 93.8 fl (80-94); Nucleated Red Blood Cells % 0 %; Platelet Count 150 K/mm3 (142-424); Red Blood Count 4.50 M/mm3 (4.60-6.20); Red Cell Distribution Width-SD 45.3 fL; White Blood Count 7.2 K/mm3 (4.8-10.8)
[2025-04-11 16:16] LABS: Chloride 105 mmol/L (98-107); Potassium 3.8 mmoL/L (3.5-5.1); Sodium 141 mmol/L (136-145)
[2025-04-11] MEDS: LIDOCAINE 1% W/EPI 1:100,000 20ML VIAL 20 ML SQ (16:18)
[2025-04-11 16:19] LABS: Alanine Aminotransferase 22 U/L (12-78); Aspartate Amino Transferase 49 U/L (17-59); Bilirubin,Total 0.8 mg/dl (0.2-1.3); Blood Urea Nitrogen 19 mg/dl (9-20); Calcium 8.7 mg/dl (8.4-10.2); Creatinine Clearance Estimated 53 mL/min (50-200); Creatinine,Serum 1.30 mg/dl (0.66-1.25); Estimated Glomerular Filt Rate 53 ml/min (>60); GFR (African American) 64 ML/MIN (>60); Glucose 202 mg/dl (74-100); Total Protein,Serum 6.5 g/dl (6.3-8.2)
[2025-04-11 16:20] LABS: Hemoglobin A1C 8.9 % (4.0-6.0); Magnesium 2.2 mg/dl (1.6-2.3)
[2025-04-11 16:24] LABS: Anion Gap 17.8 mEq/L (5-15); Carbon Dioxide 22 mmol/L (22.0-30.0)
[2025-04-11 16:25] LABS: Albumin Level 3.8 g/dl (3.5-5.0); Albumin/Globulin Ratio 1.4 (1.1-1.8); Globulin 2.7 g/dL (1.3-3.2)
[2025-04-11] MEDS: 0.9 % SODIUM CHLORIDE 1000ML 500 ML 999 ML IV (16:25)
[2025-04-11 16:50] LABS: Thyroid Stimulating Hormone 1.88 uIU/mL (0.465-4.68)
[2025-04-11] MEDS: MIDAZOLAM HCL 1MG/ML 5ML VIAL 1 MG IV (17:04)
[2025-04-11] MEDS: FENTANYL 100MCG/2ML VIAL 50 MCG IV (17:05)
--- NOTE | 2025-04-11 17:25 | ECG_ITS ---
APPROVED REPORT Exam: Resting ECG HR:111 bpm ECG Measurements Heart Rate 111 AXES WA 136 P -11 QRSd 174 QRS 259 QT 440 T 78 QTc 506 Conclusion ELECTRONIC VENTRICULAR PACEMAKER ABNORMAL RHYTHM ECG UNCONFIRMED REPORT Electronically signed by : Alo Vines MD 04/12/2025 09:27:29
--- NOTE | 2025-04-11 17:26 | XR_ITS ---
PROCEDURE INFORMATION: Exam: XR Chest Exam date and time: 04/11/2025 5:30 PM Age: 79 years old Clinical indication: Device placement; Other: Post pacemaker insertion TECHNIQUE: Imaging protocol: Radiologic exam of the chest. Views: 1 view. COMPARISON: CR XR CHEST PORTABLE 01/04/2023 6:50 PM FINDINGS: Tubes, catheters and devices: A pacemaker device is present, and its leads are in appropriate position. Lungs: Lung volumes are mildly diminished. There are mildly increased perihilar and bibasilar opacities which may reflect atelectasis. Correlate clinically. No focal areas of consolidation. Pleural spaces: No pleural effusions. Negative for pneumothorax. Heart/Mediastinum: Pulmonary vasculature is within range of normal. The heart is borderline enlarged. Bones/joints: There is no evidence of acute fracture. Mild degenerative changes involve the shoulders bilaterally. IMPRESSION: 1. [id number] decreased lung vol skin hernando are seen overlying the left axillary region. 2. Mildly increased perihilar and bibasilar opacities which may reflect atelectasis. Correlate clinically.
[2025-04-11 17:48] LABS: POC Glucose,Bedside 179 gm/dL (70-110)
[2025-04-11] MEDS: GABAPENTIN 800MG TABLET 800 MG PO (20:36)
[2025-04-11] MEDS: METOPROLOL SUCCINATE XL 50MG TABLET 50 MG PO (20:37)
[2025-04-11] MEDS: ATORVASTATIN 20MG TABLET 20 MG PO (20:37)
[2025-04-11] MEDS: TAMSULOSIN 0.4MG CAPSULE 0.4 MG PO (20:54)
[2025-04-11] MEDS: ROPINIROLE 1MG TABLET 1 MG PO (20:55)
[2025-04-11] MEDS: humaLOG 100 UNITS/ML 10ML VIAL (SSI) SUBCUT (21:05)
[2025-04-11 21:06] LABS: POC Glucose,Bedside 237 gm/dL (70-110)
[2025-04-12] VITALS (7 sets, daily range): BP systolic 124–155; BP diastolic 40–94; PULSE 61–74; RESP 14–18; TEMP 36.2–36.8; O2SAT 95–97; BMI 26.9
[2025-04-12 05:34] LABS: Hematocrit 40.9 % (42.0-52.0); Hemoglobin 13.6 g/dL (14.1-18.0); Immature Granulocytes % 0.5 %; Mean Corpuscular HGB Conc 33.3 g/dL (31.8-35.4); Mean Corpuscular Hemoglobin 31.3 pg (27.0-31.2); Mean Corpuscular Volume 94.0 fl (80-94); Nucleated Red Blood Cells % 0 %; Platelet Count 157 K/mm3 (142-424); Red Blood Count 4.35 M/mm3 (4.60-6.20); Red Cell Distribution Width-SD 45.9 fL; White Blood Count 10.3 K/mm3 (4.8-10.8)
[2025-04-12 05:36] LABS: Albumin Level 3.5 g/dl (3.5-5.0); Chloride 105 mmol/L (98-107); Potassium 4.0 mmoL/L (3.5-5.1); Sodium 138 mmol/L (136-145)
[2025-04-12 05:38] LABS: Blood Urea Nitrogen 18 mg/dl (9-20); Creatinine Clearance Estimated 63 mL/min (50-200); Creatinine,Serum 1.10 mg/dl (0.66-1.25); Estimated Glomerular Filt Rate 64 ml/min (>60); GFR (African American) 78 ML/MIN (>60)
[2025-04-12 05:39] LABS: Alanine Aminotransferase 17 U/L (12-78); Albumin/Globulin Ratio 1.3 (1.1-1.8); Alkaline Phosphatase 114 U/L (38-126); Anion Gap 9.0 mEq/L (5-15); Aspartate Amino Transferase 30 U/L (17-59); Bilirubin,Total 0.6 mg/dl (0.2-1.3); Calcium 8.2 mg/dl (8.4-10.2); Carbon Dioxide 28 mmol/L (22.0-30.0); Globulin 2.7 g/dL (1.3-3.2); Glucose 129 mg/dl (74-100); Magnesium 2.2 mg/dl (1.6-2.3); Total Protein,Serum 6.2 g/dl (6.3-8.2)
--- NOTE | 2025-04-12 05:41 | PC.NURSE ---
Called hospitalist to see of patient needs to be NPO after midnight or if he can eat; she states he can eat and she will put a diet in
[2025-04-12 05:43] LABS: POC Glucose,Bedside 147 gm/dL (70-110)
--- NOTE | 2025-04-12 07:27 | EXP.DC.SUM ---
General Admission date:: 04/11/25 Discharge date: 04/12/25 HPI HPI HPI: Mr. Dempsey is an 79-year-old male who was seen by his PCP today for routine follow-up. At that visit he reported that he had a syncopal event 3 weeks ago where he fell and busted his face. On evaluation, EKG was obtained. EKG personally reviewed and is scanned into patient's chart. It was obtained at 1150 this morning. It showed a ventricular rate of 58 beats a minute however rhythm strip appears to show complete heart block with an dissociation of P waves and ventricular conduction. Occasional ventricular ectopy. Given his complete heart block (third degree heart block), patient was instructed to report to cardiology office for urgent evaluation. Cardiology requested admission for pacemaker placement and monitoring overnight. I agreed to admit. Seen after his procedure. Tolerated pacemaker placement well without any issue. Heart rate approximately 112 at time of evaluation. Patient is still somnolent from sedation. History obtained from daughter. She reports that he has been having dizzy spells and weakness for greater than 6 months. Has a history of CABG in 2007. Heart cath about a year ago with no stents placed as his CAD was stable. Patient is otherwise normally active and independent. Stable on room air. Denied chest pain. Hospital Course Hospital Course Hospital Course: 79-year-old male who presented for routine visit with his PCP. Had been having dizzy spells with syncopal event 3 weeks ago. EKG obtained showing third-degree heart block. Referred to cardiology for urgent evaluation. Discussed case with national account director, request admission for monitoring overnight after placement of pacemaker due to heart block with symptoms including syncope 3 weeks ago. I agreed to admit for further care. Patient tolerated procedure well. Did well overnight. Improved rate control. Patient having mild pocket pain in the morning which is not unexpected. Otherwise doing well. Tolerating p.o. intake. Stable discharge home with family. Follow-up with cardiology this week. Problems addressed as follows: Third-degree heart block Syncope Abnormal EKG History of CABG x 2 CAD/PAD -EKG per my review with third-degree heart block. See scanned EKG in chart. Cardiology consulted to assist with care, appreciate their intervention today and placement of pacemaker. Patient's heart rate initially elevated in the 1 teens on arrival to the unit. Initiated on higher dose metoprolol succinate 50 mg at night. Tolerated well with improved rate control. Continue higher dose at discharge. Blood pressure showed improvement as well. Continue home regimen including the following: aspirin 81 mg daily, Plavix 75 mg daily, Farxiga 10 mg daily, Livalo 4 mg daily -Monitored on telemetry with paced rhythm noted throughout the night. Overall doing well. Labs stable in the morning. Discharge home with family. - TSH 1.88 BPH: Continue tamsulosin 0.4 mg daily and finasteride 5 mg daily Diabetes: A1c 8.9, goal less than 8 given comorbidities and age. Initiated on sliding scale during admission. Resume home regimen at discharge. Continue Farxiga, Januvia, metformin, glimepiride. Recommend close follow-up with PCP for further adjustments Neuropathy: Continue gabapentin 800 mg twice daily Restless leg: Continue ropinirole 1 mg nightly Total time spent on discharge 32 minutes in counseling, documentation, discussion with family and patient at bedside, chart review, and direct care with patient. Exam Data for Last 24 hours Vital signs and Labs for Last 24 Hours: Temp Pulse Resp BP Pulse Ox O2 Del Method 97.2 F L 61 14 124/40 L 95 Room Air 04/12/25 04:20 04/12/25 04:00 04/12/25 04:00 04/12/25 04:00 04/12/25 04:00 04/12/25 06:48 Laboratory Results - last 24 hr 04/11/25 15:41: WBC 7.2, RBC 4.50 L, Hgb 14.0 L, Hct 42.2, MCV 93.8, MCH 31.1, MCHC 33.2, RDW 13.2, Plt Count 150, MPV 10.6 H, Neut % (Auto) 70.7, Lymph % (Auto) 13.1, Kimble % (Auto) 12.7 H, Eos % (Auto) 1.9, Baso % (Auto) 1.0, Neut # (Auto) 5.1, Lymph # (Auto) 1.0, Kimble # (Auto) 0.9, Eos # (Auto) 0.1, Baso # (Auto) 0.1, Sodium 141, Potassium 3.8, Chloride 105, Carbon Dioxide 22, Anion Gap 17.8 H, BUN 19, Creatinine 1.30 H, Estimated Creat Clear 53, Estimated GFR 53 L, Est GFR ( Amer) 64, Glucose 202 H D, Hemoglobin A1c 8.9 H, Calcium 8.7, Magnesium 2.2, Total Bilirubin 0.8, AST 49 D, ALT 22 D, Alkaline Phosphatase , Total Protein 6.5, Albumin 3.8, Globulin 2.7, Albumin/Globulin Ratio 1.4, TSH 1.88 04/11/25 17:41: POC Glucose 179 H 04/11/25 20:58: POC Glucose 237 H 04/12/25 04:45: WBC 10.3 D, RBC 4.35 L, Hgb 13.6 L, Hct 40.9 L, MCV 94.0, MCH 31.3 H, MCHC 33.3, RDW 13.2, Plt Count 157, MPV 10.7 H, Neut % (Auto) 78.0, Lymph % (Auto) 8.6 L, Kimble % (Auto) 11.8 H, Eos % (Auto) 0.7, Baso % (Auto) 0.4, Neut # (Auto) 8.0 H, Lymph # (Auto) 0.9, Kimble # (Auto) 1.2 H, Eos # (Auto) 0.1, Baso # (Auto) 0.0, Sodium 138, Potassium 4.0, Chloride 105, Carbon Dioxide 28, Anion Gap 9.0, BUN 18, Creatinine 1.10, Estimated Creat Clear 63, Estimated GFR 64, Est GFR ( Amer) 78 D, Glucose 129 H D, Calcium 8.2 L, Magnesium 2.2, Total Bilirubin 0.6, AST 30 D, ALT 17, Alkaline Phosphatase 114, Total Protein 6.2 L, Albumin 3.5, Globulin 2.7, Albumin/Globulin Ratio 1.3 04/12/25 05:36: POC Glucose 147 H I & O for Last 24 hours: Intake & Output 04/09/25 04/10/25 04/11/25 04/12/25 23:59 23:59 23:59 23:59 Intake Total 1530 / 1530 Output Total 375 / 375 525 / 525 Balance 1155 / 1155 -525 / -525 Weight 82.554 kg 82.327 kg Constitutional Constitutional: no acute distress, average body habitus, chronically ill appearing and cooperative *Routine HEENT Exam Head: Present normocephalic Eye: Present EOMI and PERRL ENT: Present mucous membranes moist *Routine Neck Exam Neck: Present supple; Absent lymphadenopathy Routine Chest/Breast/Axilla Exam Chest wall: Present pacemaker (Mild bruising around pocket left chest. No significant hematoma) *Routine Respiratory Exam Respiratory: Present CTA bilaterally; Absent rhonchi, wheezes or crackles *Routine Cardiovascular Exam Cardiovascular: Present RRR *Routine Abdominal Exam Abdominal: Present soft and normoactive bowel sounds; Absent tenderness *Routine Rectal Exam Patient deferred: visual exam *Routine Exam Patient deferred: penile exam *Routine Extremities Exam Extremities: Absent cyanosis, clubbing or edema *Routine Skin Exam Skin: Present warm; Absent rash *Routine Neurological Exam Neurological: Present alert, oriented X3 and moving all extremities; Absent altered mental status Results Data Completed and Pending Labs on day of discharge: Labs from last 24 hours 04/12/25 04/12/25 04/11/25 05:36 04:45 20:58 WBC 10.3 D RBC 4.35 L Hgb 13.6 L Hct 40.9 L MCV 94.0 MCH 31.3 H MCHC 33.3 RDW 13.2 Plt Count 157 MPV 10.7 H Neut % (Auto) 78.0 Lymph % (Auto) 8.6 L Kimble % (Auto) 11.8 H Eos % (Auto) 0.7 Baso % (Auto) 0.4 Neut # (Auto) 8.0 H Lymph # (Auto) 0.9 Kimble # (Auto) 1.2 H Eos # (Auto) 0.1 Baso # (Auto) 0.0 Sodium 138 Potassium 4.0 Chloride 105 Carbon Dioxide 28 Anion Gap 9.0 BUN 18 Creatinine 1.10 Estimated Creat Clear 63 Estimated GFR 64 Est GFR ( Amer) 78 D Glucose 129 H D POC Glucose 147 H 237 H Hemoglobin A1c Calcium 8.2 L Magnesium 2.2 Total Bilirubin 0.6 AST 30 D ALT 17 Alkaline Phosphatase 114 Total Protein 6.2 L Albumin 3.5 Globulin 2.7 Albumin/Globulin Ratio 1.3 TSH 04/11/25 04/11/25 17:41 15:41 WBC 7.2 RBC 4.50 L Hgb 14.0 L Hct 42.2 MCV 93.8 MCH 31.1 MCHC 33.2 RDW 13.2 Plt Count 150 MPV 10.6 H Neut % (Auto) 70.7 Lymph % (Auto) 13.1 Kimble % (Auto) 12.7 H Eos % (Auto) 1.9 Baso % (Auto) 1.0 Neut # (Auto) 5.1 Lymph # (Auto) 1.0 Kimble # (Auto) 0.9 Eos # (Auto) 0.1 Baso # (Auto) 0.1 Sodium 141 Potassium 3.8 Chloride 105 Carbon Dioxide 22 Anion Gap 17.8 H BUN 19 Creatinine 1.30 H Estimated Creat Clear 53 Estimated GFR 53 L Est GFR ( Amer) 64 Glucose 202 H D POC Glucose 179 H Hemoglobin A1c 8.9 H Calcium 8.7 Magnesium 2.2 Total Bilirubin 0.8 AST 49 D ALT 22 D Alkaline Phosphatase Total Protein 6.5 Albumin 3.8 Globulin 2.7 Albumin/Globulin Ratio 1.4 TSH 1.88 DS: Diagnosis Discharge Diagnosis (1) Complete heart block: Status: Acute Code(s): I44.2 - Atrioventricular block, complete (2) Syncope: Status: Acute Code(s): R55 - Syncope and collapse (3) Abnormal EKG: Status: Acute Code(s): R94.31 - Abnormal electrocardiogram [ECG] [EKG] (4) PAD (peripheral artery disease): Status: Acute Code(s): I73.9 - Peripheral vascular disease, unspecified (5) CAD (coronary artery disease): Status: Acute Code(s): I25.10 - Atherosclerotic heart disease of [place] coronary artery without angina pectoris Qualifiers: Associated angina: without angina Coronary Disease-Associated Artery/Lesion type: [place] artery [place] vs. transplanted heart: [place] heart Qualified Code(s): I25.10 - Atherosclerotic heart disease of [place] coronary artery without angina pectoris (6) MEHUL (obstructive sleep apnea): Status: Chronic Code(s): G47.33 - Obstructive sleep apnea (adult) (pediatric) (7) BPH associated with nocturia: Status: Acute Code(s): N40.1 - Benign prostatic hyperplasia with lower urinary tract symptoms; R35.1 - Nocturia (8) Diabetic neuropathy: Status: Acute Code(s): E11.40 - Type 2 diabetes mellitus with diabetic neuropathy, unspecified (9) Diabetes: Status: Chronic Code(s): E11.9 - Type 2 diabetes mellitus without complications Qualifiers: Diabetes mellitus complication status: with unspecified complications Diabetes mellitus terminal gauger insulin use: without terminal gauger use Diabetes mellitus type: type 2 Qualified Code(s): E11.8 - Type 2 diabetes mellitus with unspecified complications (10) S/P placement of cardiac pacemaker: Status: Acute Code(s): Z95.0 - Presence of cardiac pacemaker Meds Home Medications and Allergies Home Medications ?Medication ?Instructions ?Recorded ?Confirmed ?Type aspirin 81 mg tablet 81 mg PO DAILY 09/07/23 04/11/25 History blood sugar diagnostic (Contour #70 ea 05/23/24 04/11/25 Rx Next Test Strips) metformin 1,000 mg tablet 1,000 mg PO DAILY 07/07/24 04/11/25 History pitavastatin calcium 4 mg tablet 4 mg PO DAILY #90 tabs 10/05/24 04/11/25 Rx (Livalo) hydrochlorothiazide 12.5 mg capsule 12.5 mg PO DAILY #90 caps 10/24/24 04/11/25 Rx fluticasone propionate 50 2 spray intranasal DAILY #16 grams 12/21/24 04/11/25 Rx mcg/actuation nasal spray,suspension (Flonase Allergy Relief) blood sugar diagnostic (Accu-Chek #100 ea 03/22/25 04/11/25 Rx Hina Plus test strips) blood-glucose meter (Accu-Chek #1 ea 03/22/25 04/11/25 Rx Guide Glucose Meter) lancets (Accu-Chek Softclix #100 ea 03/22/25 04/11/25 Rx Lancets) amlodipine 5 mg tablet 2.5 mg PO DAILY 04/11/25 04/11/25 History Held on 04/12/25. Instructions: pending reassessment of blood pressure cetirizine 10 mg tablet 10 mg PO DAILY 04/11/25 04/11/25 History clopidogrel 75 mg tablet 75 mg PO DAILY 04/11/25 04/11/25 History dapagliflozin propanediol 10 mg 10 mg PO DAILY 04/11/25 04/11/25 History tablet (Farxiga) finasteride 5 mg tablet 5 mg PO DAILY 04/11/25 04/11/25 History gabapentin 800 mg tablet 800 mg PO BID #90 tabs 04/11/25 04/11/25 Rx glimepiride 2 mg tablet 2 mg PO BID 04/11/25 04/11/25 History ropinirole 1 mg tablet 1 mg PO HS #30 tabs 04/11/25 04/11/25 Rx sitagliptin phosphate 100 mg 100 mg PO DAILY 04/11/25 04/11/25 History tablet (Januvia) tamsulosin 0.4 mg capsule 0.4 mg PO DAILY 04/11/25 04/11/25 History hydrocodone 5 mg-acetaminophen 325 1 tab PO Q4HP PRN Mild To Moderate 04/12/25 Rx mg tablet Pain (1-6) 3 days #11 tabs metoprolol succinate 50 mg 50 mg PO HS 30 days #30 tabs 04/12/25 Rx tablet,extended release 24 hr (Toprol XL) New Prescriptions to Start Prescriptions: hydrocodone-acetaminophen Lance Pepper metoprolol succinate [Toprol XL] Lance Pepper Allergies Allergy/AdvReac Type Severity Reaction Status Date / Time No Known Drug Allergies Allergy Unknown Other Verified 04/11/25 14:46 (NKDA) Discharge Plan Disposition Patient Disposition: Home, Self-Care Condition: Fair Discharge Order Discharge Orders: Discharge Order (Routine); Ordered 04/12/25 Ordered By: Lance Pepper Follow up Plan Follow up with: Rufina Mesa APRN [Primary Care Provider, Family Practice] - 04/25/25 3:00 pm Referral Note: Hilton Marquis MD [Staff Physician, Cardiology] - 04/18/25 9:00 am Prescriptions/Medication Reconciliation: New metoprolol succinate [Toprol XL] 50 mg Tablet Extended Release 24 Hr 50 mg PO HS 30 Days Qty: 30 0RF hydrocodone-acetaminophen 5-325 mg Tablet 1 tab PO Q4HP PRN (Reason: Mild To Moderate Pain (1-6)) 3 Days Qty: 11 0RF Continued metformin 1,000 mg tablet 1,000 mg PO DAILY Patient Comments: TAKE 1 TABLET BY MOUTH DAILY FOR DIABETES aspirin 81 mg tablet 81 mg PO DAILY fluticasone propionate [Flonase Allergy Relief] 50 mcg/actuation spray,suspension 2 spray intranasal DAILY Qty: 16 2RF Rx Instructions: administer into each nostril daily ropinirole 1 mg tablet 1 mg PO HS Qty: 30 2RF Rx Instructions: administer 1-3 hours before bedtime gabapentin 800 mg tablet 800 mg PO BID Qty: 90 2RF (DME) Contour Next Test Strips Strip See Rx Instructions .Route Qty: 70 6RF Rx Instructions: As directed TID pitavastatin calcium [Livalo] 4 mg tablet 4 mg PO DAILY Qty: 90 3RF hydrochlorothiazide 12.5 mg capsule 12.5 mg PO DAILY Qty: 90 1RF (DME) blood-glucose meter [Accu-Chek Guide Glucose Meter] Misc See Rx Instructions miscellaneous .MEDSUPPLY Qty: 1 0RF Rx Instructions: As directed (DME) Accu-Chek Hina Plus test strp Strip See Rx Instructions .MEDSUPPLY Qty: 100 1RF Rx Instructions: As directed once daily (DME) lancets [Accu-Chek Softclix Lancets] Misc See Rx Instructions .MEDSUPPLY Qty: 100 1RF Rx Instructions: As directed once daily cetirizine 10 mg tablet 10 mg PO DAILY clopidogrel 75 mg tablet 75 mg PO DAILY glimepiride 2 mg tablet 2 mg PO BID tamsulosin 0.4 mg capsule 0.4 mg PO DAILY finasteride 5 mg tablet 5 mg PO DAILY Januvia 100 mg tablet 100 mg PO DAILY dapagliflozin propanediol [Farxiga] 10 mg tablet 10 mg PO DAILY Held amlodipine 5 mg tablet 2.5 mg PO DAILY Hold Instructions: pending reassessment of blood pressure Discontinued metoprolol succinate 25 mg tablet extended release 24 hr 25 mg PO DAILY Problem Reconciliation Problems Reviewed?: Yes Patient Discharge Instructions ACTIVITY: Continue current activity DIET: continue same diet Patient Instructions: DI for Pacemaker Insertion, DI for Surgical Site Infection Print Language: Slovak Providers Primary Care Provider: Rufina Mesa Admit Provider: Lance Pepper Attending Provider: Lance Pepper
[2025-04-12] MEDS: SITAGLIPTIN 50MG TABLET 100 MG PO (08:35)
[2025-04-12] MEDS: FINASTERIDE 5MG TABLET 5 MG PO (08:36)
[2025-04-12] MEDS: CLOPIDOGREL 75MG TAB 75 MG PO (08:36)
[2025-04-12] MEDS: DAPAGLIFLOZIN PROPANEDIOL 10 MG TABLET PO (08:36)
[2025-04-12] MEDS: ASPIRIN EC 81MG TABLET 81 MG PO (08:36)
[2025-04-12] MEDS: GABAPENTIN 800MG TABLET 800 MG PO (08:43)
== END 2025-04-12 11:13 | disposition home or self-care (01) ==
PROVIDERS: Internal Medicine; Admitting Provider Internal Medicine Adolescent Medicine; PCP Family Medicine; Visit Provider Internal Medicine Adolescent Medicine
PROC: 0JH606Z Insertion of Pacemaker, Dual Chamber into Chest Subcutaneous Tissue and Fascia, Open Approach (ICD-10-PCS; CPT 33208; principal; 2025-04-11 16:45)
DX: I44.2 Atrioventricular block, complete (principal); I25.10 Atherosclerotic heart disease of native coronary artery without angina pectoris; E11.40 Type 2 diabetes mellitus with diabetic neuropathy, unspecified; G25.81 Restless legs syndrome; G47.33 Obstructive sleep apnea (adult) (pediatric); N40.1 Benign prostatic hyperplasia with lower urinary tract symptoms; R35.1 Nocturia; Z95.1 Presence of aortocoronary bypass graft; Z79.82 Long term (current) use of aspirin; Z79.84 Long term (current) use of oral hypoglycemic drugs; Z79.02 Long term (current) use of antithrombotics/antiplatelets; Z79.899 Other long term (current) drug therapy
CPT/HCPCS: 33208; 36415; 71045; 80053; 82962; 83036; 83735; 84443; 85025; 93005; 93308; 99152; 99153; C1785; C1898; G0378; J1200; J2004; J2250; J3010; J7030